=== PATIENT | male | born 1950 ===

== ENCOUNTER → 2018-01-21 11:27 | Outpatient (CLI) | payer OTHER, SELFPAY | PROVIDERS: PCP Physician Assistant; Visit Provider Physician Assistant | DX: Z12.5 Encounter for screening for malignant neoplasm of prostate (principal) | CPT/HCPCS: 36415; 84153 ==

== ENCOUNTER → 2018-07-17 09:25 | Outpatient (CLI) | payer OTHER, SELFPAY ==
[2018-07-17 10:13] LABS: Add Manual Diff / Slide Review NO; Basophils Percent Auto 0.2 % (0-2); Eosinophils Percent Auto 1.2 % (2-4); Hematocrit 45.9 % (41-53); Hemoglobin 15.4 g/dL (13.5-17.5); Lymphocytes Percent Auto 28.7 % (25-40); Mean Corpuscular HGB Conc 33.5 % (30-36); Mean Corpuscular Hemoglobin 30.2 PG (26-34); Mean Corpuscular Volume 90.3 fL (80-100); Monocytes Percent Auto 8.6 % (3-14); Neutrophils Absolute Auto 3600 /uL (3000-5900); Neutrophils Percent Auto 61.3 % (50-75); Platelet Count 182 X10^3/uL (150-400); Red Blood Cell Count 5.08 X10^6/uL (4.5-5.9); Red Cell Distribution Width 13.6 % (11.6-14.8); White Blood Cell Count 5.8 X10^3/uL (4.5-11.0)
[2018-07-17 11:07] LABS: HEMOLYSIS < 15 (0-50); Iron 110 ug/dL (49-181)
[2018-07-17 11:08] LABS: Alanine Aminotransferase 33 IU/L (21-72); Albumin 4.4 g/dL (3.5-5.0); Albumin Globulin Ratio 1.6 (1.0-2.8); Alkaline Phosphatase 82 U/L (38-126); Aspartate Aminotransferase 28 IU/L (17-59); BUN Creatinine Ratio 18.3 (6-22); Bilirubin Total 0.7 mg/dL (0.2-1.3); Blood Urea Nitrogen 22 mg/dL (9-20); Calcium 9.4 mg/dL (8.4-10.2); Carbon Dioxide 31 mmol/L (22-32); Chloride 103 mmol/L (98-107); Estimated Glomerular Filt Rate > 60.0 mL/min (>60); Globulin 2.8 g/dL (1.7-4.1); Glucose 90 mg/dL (80-110); HEMOLYSIS < 15 (0-50); Potassium 4.7 mmol/L (3.4-5.1); Sodium 144 mmol/L (137-145); Total Protein 7.2 g/dL (6.3-8.2)
[2018-07-17 11:32] LABS: Percent Iron Saturation 37 % (20-50); Total Iron Binding Capacity 297 ug/dL (261-462)
[2018-07-17 11:42] LABS: Thyroid Stimulating Hormone 2.29 uIU/mL (0.47-4.68)
[2018-07-17 11:46] LABS: Ferritin 37.1 ng/mL (17.9-464)
[2018-07-17 13:35] LABS: Transferrin 239 mg/dL (206-381)
== END ==
PROVIDERS: PCP Physician Assistant; Visit Provider Physician Assistant
DX: K21.9 Gastro-esophageal reflux disease without esophagitis (principal); R10.11 Right upper quadrant pain; R10.12 Left upper quadrant pain; R11.0 Nausea; R42 Dizziness and giddiness; R53.83 Other fatigue
CPT/HCPCS: 36415; 80053; 82728; 83540; 83550; 84443; 85025

== ENCOUNTER → 2018-07-24 14:08 | Outpatient (CLI) | payer OTHER, SELFPAY ==
--- NOTE | 2018-07-24 14:09 | DI.RAD.S_ITS ---
PROCEDURE: FL BARIUM SWALLOW INDICATIONS: Upper abdominal discomfort; nausea; heartburn COMPARISON: None. FINDINGS: Function: There is normal esophageal peristalsis. There is mild gastroesophageal reflux with contrast reflux to inferior one third of the esophageal lumen. A small sliding hiatal hernia is also seen There is normal transit of a calibrated barium tablet through the esophagus into the stomach. Morphology: Air-contrast images demonstrate normal mucosal morphology. Single contrast views show no esophageal strictures, extrinsic mass effects, or diverticula. Limited images of the stomach demonstrate normal appearance. IMPRESSION: Small sliding hiatal hernia and mild gastroesophageal reflux. Dictated by: Harvey Rodriguez M.D. on 07/24/2018 at 15:35 Approved by: Harvey Rodriguez M.D. on 07/24/2018 at 15:39
== END ==
PROVIDERS: PCP Physician Assistant; Visit Provider Physician Assistant
DX: K21.9 Gastro-esophageal reflux disease without esophagitis (principal); K44.9 Diaphragmatic hernia without obstruction or gangrene; R10.11 Right upper quadrant pain; R10.12 Left upper quadrant pain; R11.0 Nausea; R42 Dizziness and giddiness; R53.83 Other fatigue
CPT/HCPCS: 74220

== ENCOUNTER → 2018-08-04 13:36 | Outpatient (CLI) | payer OTHER, SELFPAY ==
--- NOTE | 2018-08-04 13:37 | DI.US.S_ITS ---
PROCEDURE: US ABDOMEN COMPLETE INDICATIONS: PAIN TECHNIQUE: Real-time scanning was performed of the abdominal and retroperitoneal organs, with image documentation. COMPARISON: None. FINDINGS: Liver: The liver demonstrates normal size. The liver demonstrates generalized increased echogenicity. This decreases ultrasound sensitivity for detection of hepatic masses. Gallbladder: No findings of gallstones or sludge are seen. The gallbladder wall is not thickened, measuring 3 mm or less. No specific pericholecystic fluid is seen. The sonographic Garsia sign is negative. Biliary ducts: Intrahepatic bile ducts are non-dilated. Extrahepatic bile duct caliber measures 3 mm. Normal is 6-7 mm or less in diameter, or 10 mm or less post-cholecystectomy. Pancreas: Visualized portions of the pancreas are sonographically normal. Spleen: Spleen is normal in size and homogeneous in echotexture. Kidneys: Kidneys are normal in size and echotexture. Right kidney measures 10.5 cm long; left kidney measures 9.1 cm long. No hydronephrosis or nephrolithiasis. No solid masses. Simple appearing bilateral renal cysts can be seen. The renal cortex measures within normal limits for thickness. Aorta: Visualized aorta is normal in caliber at less than 3 cm. Iliacs: Proximal common iliac arteries are normal in caliber at less than 2.5 cm. IVC: Intrahepatic inferior vena cava is patent. Miscellaneous: No free abdominal fluid. IMPRESSION: No imaging explanation is found for this patient's presenting history of upper abdominal pain. The gallbladder demonstrates a normal sonographic appearance. No biliary dilatation is seen. Bilateral simple appearing renal cysts are incidentally noted. The liver demonstrates increased echogenicity. This finding is nonspecific, yet it is most commonly attributed to fatty infiltration. Dictated by: Serg Rendon M.D. on 08/04/2018 at 13:48 Approved by: Serg Rendon M.D. on 08/04/2018 at 13:50
== END ==
PROVIDERS: PCP Physician Assistant; Visit Provider Physician Assistant
DX: R10.11 Right upper quadrant pain (principal); R10.12 Left upper quadrant pain; K21.9 Gastro-esophageal reflux disease without esophagitis; R11.0 Nausea; R42 Dizziness and giddiness; R53.83 Other fatigue
CPT/HCPCS: 76700

== ENCOUNTER → 2021-11-20 14:47 | Outpatient (CLI) | payer OTHER, SELFPAY ==
[2021-11-20 15:14] LABS: Add Manual Diff / Slide Review NO; Basophils Absolute Auto 0 /uL (0-100); Basophils Percent Auto 0.6 % (0-2); Eosinophils Absolute Auto 100 /uL (0-450); Eosinophils Percent Auto 2.3 % (2-4); Hematocrit 44.5 % (41-53); Hemoglobin 14.8 g/dL (13.5-17.5); Lymphocytes Absolute Auto 1600 /uL (1100-4500); Lymphocytes Percent Auto 25.8 % (25-40); Mean Corpuscular HGB Conc 33.2 % (30-36); Mean Corpuscular Hemoglobin 30.6 PG (26-34); Mean Corpuscular Volume 92.2 fL (80-100); Monocytes Absolute Auto 600 /uL (0-900); Monocytes Percent Auto 10.2 % (3-14); Neutrophils Absolute Auto 3800 /uL (1500-7000); Neutrophils Percent Auto 61.1 % (50-75); Platelet Count 247 X10^3/uL (150-400); Red Blood Cell Count 4.83 X10^6/uL (4.5-5.9); Red Cell Distribution Width 14.1 % (11.6-14.8); White Blood Cell Count 6.2 X10^3/uL (4.5-11.0)
[2021-11-20 15:39] LABS: Alanine Aminotransferase 71 IU/L (<50); Albumin 4.3 g/dL (3.5-5.0); Albumin Globulin Ratio 1.4 (1.0-2.8); Alkaline Phosphatase 150 U/L (38-126); Aspartate Aminotransferase 49 IU/L (17-59); BUN Creatinine Ratio 15.6 (6-22); Bilirubin Total 0.6 mg/dL (0.2-1.3); Blood Urea Nitrogen 25 mg/dL (9-20); Carbon Dioxide 28 mmol/L (22-32); Chloride 101 mmol/L (98-107); Cholesterol 119 mg/dL (140-199); Estimated Glomerular Filt Rate 42.9 mL/min (>60); Glucose 119 mg/dL (80-110); HDL Cholesterol 40 mg/dL (40-60); HEMOLYSIS < 15 (0-50); LDL Cholesterol Calculated 62 mg/dL (<100); Potassium 4.6 mmol/L (3.4-5.1); Sodium 138 mmol/L (137-145); Total Protein 7.3 g/dL (6.3-8.2); Triglycerides 86 mg/dL (35-150)
[2021-11-20 16:08] LABS: Prostate Specific Antigen Scrn 2.22 ng/mL (0.1-4.0)
[2021-11-20 16:44] LABS: TSH w/ Reflex to FT4 4.81 uIU/mL (0.47-4.68)
== END ==
PROVIDERS: PCP Internal Medicine; Referring Provider Internal Medicine; Visit Provider Internal Medicine
DX: E78.2 Mixed hyperlipidemia (principal); I50.22 Chronic systolic (congestive) heart failure; Z12.5 Encounter for screening for malignant neoplasm of prostate; Z80.42 Family history of malignant neoplasm of prostate
CPT/HCPCS: 36415; 80053; 80061; 84439; 84443; 85025; G0103

== ENCOUNTER → 2021-11-30 08:01 | Outpatient (CLI) | payer OTHER, SELFPAY ==
[2021-11-30 10:34] LABS: Blood Urea Nitrogen 25 mg/dL (9-20); Calcium 8.9 mg/dL (8.4-10.2); Carbon Dioxide 27 mmol/L (22-32); Chloride 102 mmol/L (98-107); Estimated Glomerular Filt Rate 51 mL/min (>60); Glucose 99 mg/dL (80-110); HEMOLYSIS < 15 (0-50); Potassium 4.7 mmol/L (3.4-5.1); Sodium 139 mmol/L (137-145)
== END ==
PROVIDERS: PCP Internal Medicine; Referring Provider Internal Medicine; Visit Provider Internal Medicine
DX: I10 Essential (primary) hypertension (principal)
CPT/HCPCS: 36415; 80048

== ENCOUNTER → 2022-02-01 08:03 | Outpatient (CLI) | payer OTHER, SELFPAY ==
--- NOTE | 2022-02-01 08:19 | DI.ECHO.S_ITS ---
+ + Interpretation Summary The patient was in Paced rhythm during the exam. Left ventricular systolic function is moderate to severely reduced. There is basal inferior wall akinesis. There is mid inferior wall akinesis. There is basal posterolateral wall akinesis. There is proximal mid posteriolateral wall akinesis. 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 Diastolic function could not be accurately assessed due to confounding valvular disease. Right ventricular systolic function is mildly reduced. The left atrium is severely dilated. An annuloplasty ring is noted in the mitral position. There is mild mitral regurgitation. There is mild aortic valve sclerosis. There is mild tricuspid regurgitation. The right ventricular systolic pressure is estimated to be at least 34 mmHg based on an estimated right atrial pressure of 8 mm Hg. The IVC is dilated (diameter is greater than 2.1 cm) yet it collapses greater than 50% with a sniff. This suggests a right atrial pressure of 8 mm Hg. The ejection fraction is estimated to be 35-40%. Echodensity in the RV cavity suggestive of pacemaker wire vs temporary pacemaker wire vs AICD lead. Similar to 11/02/2021 Procedure: A two-dimensional transthoracic echocardiogram with color flow and Doppler was performed. The study quality was technically adequate. Comparison is made with the echocardiogram of 11/02/2021. The patient was in Paced rhythm during the exam. Left Ventricle: The left ventricle is severely dilated. The estimated left ventricular end diastolic volume (BP) is 158 ml. Left ventricular systolic function is moderate to severely reduced. The ejection fraction is estimated to be 35-40%. There is basal inferior wall akinesis. There is mid inferior wall akinesis. There is basal posterolateral wall akinesis. There is proximal mid posteriolateral wall akinesis. 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 Diastolic function could not be accurately assessed due to confounding valvular disease. Right Ventricle: The right ventricle is normal size. Echodensity in the RV cavity suggestive of pacemaker wire vs temporary pacemaker wire vs AICD lead. Right ventricular systolic function is mildly reduced. Atria: The left atrium is severely dilated. Right atrial size is normal. The interatrial septum grossly appears intact with no obvious evidence for an atrial septal defect. Mitral Valve: An annuloplasty ring is noted in the mitral position. The mitral valve mean gradient is 3 mmHg. There is mild mitral regurgitation. Aortic Valve: There is mild aortic valve sclerosis. No aortic regurgitation is present. Tricuspid Valve: The tricuspid valve is normal in structure and function. There is mild tricuspid regurgitation. The right ventricular systolic pressure is estimated to be at least 34 mmHg based on an estimated right atrial pressure of 8 mm Hg. Pulmonic Valve: The pulmonic valve is normal in structure and function. There is mild pulmonic regurgitation. Great Vessels: The aortic root is normal size. The dimensions of the ascending aorta are normal. The IVC is dilated (diameter is greater than 2.1 cm) yet it collapses greater than 50% with a sniff. This suggests a right atrial pressure of 8 mm Hg. Pericardium/ Pleura There is no pericardial effusion. There is no pleural effusion. MMode/2D Measurements & Calculations LVIDd: 7.4 cm LVOT diam: 2.4 cm LVIDs: 6.8 cm Ao root diam: 3.7 cm FS: 8.1 % asc Aorta Diam: 3.4 cm IVSd: 1.2 cm LVPWd: 0.70 cm LV brooke. diameter/BSA (cm/m^2): 3.6 LV sys. diameter/BSA (cm/m^2): 3.3 LA dimension: 5.2 cm RA long axis: 5.3 cm LA A2 area: 40.7 cm2 IVC diam: 2.3 cm LA A4 area: 42.8 cm2 LA length (vol): 7.1 cm LA vol: 208.0 ml LA vol index: 102.3 ml/m2 LVLs ap4: 7.5 cm LVLd ap2: 8.6 cm LVLs ap2: 8.2 cm TAPSE_phl: 1.3 cm Doppler Measurements & Calculations Ao V2 max: 105.0 cm/sec LVOT Max Landen: 74.4 cm/sec Ao V2 mean: 82.8 cm/sec LV V1 max P.2 mmHg Ao max P.0 mmHg LV V1 VTI: 16.4 cm Ao mean P.0 mmHg THEO(I,D): 3.0 cm2 Ao V2 VTI: 24.6 cm THEO(V,D): 3.2 cm2 sev ratio: 0.67 THEO indexed to BSA (cm^2/m^2): 1.5 MV E max landen: 113.0 cm/sec TR max landen: 257.0 cm/sec MV A max landen: 62.6 cm/sec TR max P.4 mmHg MV E/A: 1.8 Med Peak E' Landen: 3.6 cm/sec E/E' med: 31.6 Lat Peak E' Landen: 6.4 cm/sec E/E' lat: 17.7 E/e' average: 24.6 MV dec time: 0.18 sec MVA(VTI): 2.0 cm2 MV V2 mean: 74.5 cm/sec MR VTI: 184.0 cm MV mean P.0 mmHg MV V2 VTI: 37.5 cm SV(LVOT): 74.2 ml AV VR_phl: 0.71 THEO(VTI)/BSA_phl: 1.5 MV P1/2t-pr_phl: 52.0 msec Reading Physician:PM
== END ==
PROVIDERS: PCP Internal Medicine
DX: I25.10 Atherosclerotic heart disease of native coronary artery without angina pectoris (principal); Z95.0 Presence of cardiac pacemaker; I08.3 Combined rheumatic disorders of mitral, aortic and tricuspid valves
CPT/HCPCS: 93306

== ENCOUNTER → 2022-02-15 11:17 | Outpatient (CLI) | payer OTHER, SELFPAY ==
[2022-02-15 12:28] LABS: Alanine Aminotransferase 37 IU/L (<50); Albumin 4.2 g/dL (3.5-5.0); Albumin Globulin Ratio 1.7 (1.0-2.8); Alkaline Phosphatase 100 U/L (38-126); Aspartate Aminotransferase 32 IU/L (17-59); BUN Creatinine Ratio 16.7 (6-22); Bilirubin Total 0.9 mg/dL (0.2-1.3); Blood Urea Nitrogen 18 mg/dL (9-20); Calcium 8.8 mg/dL (8.4-10.2); Carbon Dioxide 29 mmol/L (22-32); Chloride 104 mmol/L (98-107); Estimated Glomerular Filt Rate > 60 mL/min (>60); Globulin 2.5 g/dL (1.7-4.1); Glucose 100 mg/dL (80-110); HEMOLYSIS < 15 (0-50); Sodium 142 mmol/L (137-145); Total Protein 6.7 g/dL (6.3-8.2)
== END ==
PROVIDERS: PCP Internal Medicine; Referring Provider Internal Medicine; Visit Provider Internal Medicine
DX: I48.0 Paroxysmal atrial fibrillation (principal); N17.9 Acute kidney failure, unspecified
CPT/HCPCS: 36415; 80053

== ENCOUNTER → 2022-02-26 08:04 | Outpatient (CLI) | payer OTHER, SELFPAY ==
[2022-02-26 09:08] LABS: Add Manual Diff / Slide Review NO; Basophils Absolute Auto 0 /uL (0-100); Basophils Percent Auto 0.4 % (0-2); Eosinophils Absolute Auto 100 /uL (0-450); Eosinophils Percent Auto 1.3 % (2-4); Hematocrit 39.9 % (41-53); Hemoglobin 13.4 g/dL (13.5-17.5); Lymphocytes Absolute Auto 1500 /uL (1100-4500); Lymphocytes Percent Auto 25.1 % (25-40); Mean Corpuscular HGB Conc 33.6 % (30-36); Mean Corpuscular Hemoglobin 31.6 PG (26-34); Mean Corpuscular Volume 94.1 fL (80-100); Monocytes Absolute Auto 400 /uL (0-900); Monocytes Percent Auto 6.7 % (3-14); Neutrophils Absolute Auto 3900 /uL (1500-7000); Neutrophils Percent Auto 66.5 % (50-75); Platelet Count 176 X10^3/uL (150-400); Red Blood Cell Count 4.23 X10^6/uL (4.5-5.9); Red Cell Distribution Width 15.3 % (11.6-14.8); White Blood Cell Count 5.9 X10^3/uL (4.5-11.0)
[2022-02-26 09:40] LABS: BUN Creatinine Ratio 20.6 (6-22); Blood Urea Nitrogen 27 mg/dL (9-20); Calcium 8.6 mg/dL (8.4-10.2); Carbon Dioxide 27 mmol/L (22-32); Chloride 107 mmol/L (98-107); Cholesterol 105 mg/dL (140-199); Estimated Glomerular Filt Rate 59 mL/min (>60); Glucose 126 mg/dL (80-110); HDL Cholesterol 45 mg/dL (40-60); HEMOLYSIS < 15 (0-50); LDL Cholesterol Calculated 44 mg/dL (<100); Potassium 4.2 mmol/L (3.4-5.1); Sodium 139 mmol/L (137-145); Triglycerides 78 mg/dL (35-150)
== END ==
PROVIDERS: PCP Internal Medicine; Referring Provider Internal Medicine Cardiovascular Disease; Visit Provider Internal Medicine Cardiovascular Disease
DX: I10 Essential (primary) hypertension (principal); I25.10 Atherosclerotic heart disease of native coronary artery without angina pectoris
CPT/HCPCS: 36415; 80048; 80061; 85025

== ENCOUNTER → 2022-03-07 12:14 | Outpatient (CLI) | payer OTHER, SELFPAY ==
[2022-03-07 13:00] LABS: Appearance Urine UA CLOUDY; Bilirubin Urine UA NEGATIVE (NEGATIVE); Color Urine UA YELLOW; Glucose Urine UA NEGATIVE (Negative); Ketones Urine UA TRACE (NEGATIVE); Leukocyte Esterase Urine UA 2+ (NEGATIVE); Nitrite Urine UA POSITIVE (Negative); Occult Blood Urine UA 3+ (Negative); Protein Urine UA 2+ (Negative); Urobilinogen Urine UA 0.2 E.U./dL (0.2)
[2022-03-07 13:21] LABS: RBC Urine 30-100/HPF (0-5/HPF); WBC Urine 5-10/HPF (0-5/HPF)
[2022-03-07 13:22] LABS: Amorphous Sediment Urine 1+; Bacteria Urine Moderate (10-30); Culture Indicated Urine Specimen Cultured; Squamous Epithelial Cell Urine 1-5 /HPF (0-5/HPF)
== END ==
PROVIDERS: PCP Internal Medicine; Referring Provider Internal Medicine; Visit Provider Internal Medicine
DX: R30.0 Dysuria (principal); R39.15 Urgency of urination
CPT/HCPCS: 81001; 87077; 87086; 87186

== ENCOUNTER → 2022-04-18 10:10 | Outpatient (CLI) | payer OTHER, SELFPAY ==
[2022-04-18 11:38] LABS: BUN Creatinine Ratio 16.2 (6-22); Blood Urea Nitrogen 16 mg/dL (9-20); Calcium 8.6 mg/dL (8.4-10.2); Carbon Dioxide 27 mmol/L (22-32); Chloride 108 mmol/L (98-107); Estimated Glomerular Filt Rate > 60 mL/min (>60); Glucose 108 mg/dL (80-110); HEMOLYSIS < 15 (0-50); Sodium 139 mmol/L (137-145)
== END ==
PROVIDERS: PCP Internal Medicine; Referring Provider Internal Medicine; Visit Provider Internal Medicine
DX: N17.9 Acute kidney failure, unspecified (principal)
CPT/HCPCS: 36415; 80048

== ENCOUNTER → 2022-05-18 07:55 | Outpatient (CLI) | payer OTHER, SELFPAY ==
[2022-05-18 10:26] LABS: Add Manual Diff / Slide Review NO; Basophils Absolute Auto 0 /uL (0-100); Basophils Percent Auto 0.3 % (0-2); Eosinophils Absolute Auto 100 /uL (0-450); Eosinophils Percent Auto 1.3 % (2-4); Hematocrit 38.9 % (41-53); Hemoglobin 12.8 g/dL (13.5-17.5); Lymphocytes Absolute Auto 1400 /uL (1100-4500); Lymphocytes Percent Auto 29.8 % (25-40); Mean Corpuscular Hemoglobin 31.8 PG (26-34); Mean Corpuscular Volume 96.3 fL (80-100); Monocytes Absolute Auto 400 /uL (0-900); Neutrophils Absolute Auto 2900 /uL (1500-7000); Neutrophils Percent Auto 60.6 % (50-75); Platelet Count 155 X10^3/uL (150-400); Red Blood Cell Count 4.04 X10^6/uL (4.5-5.9); Red Cell Distribution Width 14.9 % (11.6-14.8); White Blood Cell Count 4.7 X10^3/uL (4.5-11.0)
[2022-05-18 15:35] LABS: HEMOLYSIS < 15 (0-50)
[2022-05-18 15:46] LABS: BUN Creatinine Ratio 19.8 (6-22); Blood Urea Nitrogen 24 mg/dL (9-20); Calcium 8.8 mg/dL (8.4-10.2); Carbon Dioxide 28 mmol/L (22-32); Chloride 103 mmol/L (98-107); Cholesterol 115 mg/dL (140-199); Estimated Glomerular Filt Rate > 60 mL/min (>60); Glucose 85 mg/dL (80-110); HDL Cholesterol 48 mg/dL (40-60); LDL Cholesterol Calculated 53 mg/dL (<100); Potassium 4.3 mmol/L (3.4-5.1); Sodium 140 mmol/L (137-145); Triglycerides 68 mg/dL (35-150)
== END ==
PROVIDERS: PCP Internal Medicine; Referring Provider Internal Medicine Cardiovascular Disease; Visit Provider Internal Medicine Cardiovascular Disease
DX: I25.10 Atherosclerotic heart disease of native coronary artery without angina pectoris (principal)
CPT/HCPCS: 36415; 80048; 80061; 85025

== ENCOUNTER 2022-07-05 17:29 | Emergency (ER) | payer OTHER, SELFPAY ==
[2022-07-05] VITALS (30 sets, daily range): BP systolic 87–122; BP diastolic 52–75; PULSE 59–144; RESP 15–27; TEMP 36.9; O2SAT 96–99; BMI 22.4
[2022-07-05] MEDS: AMIODARONE 150 MG/100 ML PIGGYBACK 600 MG IV (18:01)
--- NOTE | 2022-07-05 18:05 | ED.ARRPALP ---
HPI - Arrhythmia/Palpitations General Chief Complaint: Arrhythmia/Palpitations Stated Complaint: Fainting, Blood pressure issues Time Seen by Provider: 07/05/22 17:42 History of Present Illness HPI narrative: 71M nonsmoker with history of coronary artery disease with RCA stent and prior VF arrest, mitral valve repair, AFib status post DCCV, presents to the emergency department at the request of his data communications software consultant for evaluation of paroxysmal dizziness. The ascending data communications software consultant is suspicious of possible SVT versus atrial tachycardia and request patient be administered amiodarone 150 today, workup including interrogation of pacemaker and labs. Patient and report multiple episodes of dizziness and lightheadedness some provoked and others without reason since Saturday. Prior to today he would had multiple brief episodes which he thinks he may have lost consciousness for a few seconds but today was more impressive. He felt little or no prodromal symptoms, thankfully his is at his side and eased him to the ground, he suffered no injury as a consequence of this episode. He became completely unresponsive briefly and then woke up, slightly confused initially but rapidly returned to his baseline. He has been taking medications as directed and denies any dietary change. Related Data Home Medications Medication Instructions Recorded Confirmed apixaban 5 mg tablet (Eliquis) 5 mg PO BID 11/20/21 04/18/22 atorvastatin 40 mg tablet 40 mg PO DAILY 11/20/21 04/18/22 clopidogrel 75 mg tablet 75 mg PO DAILY 03/07/22 04/18/22 metoprolol succinate 50 mg 50 mg PO DAILY 03/07/22 04/18/22 tablet,extended release 24 hr nitroglycerin 0.4 mg sublingual 0.4 mg sublingual Q5-15M PRN 03/07/22 04/18/22 tablet sacubitril 49 mg-valsartan 51 mg 0.5 tab PO BID 03/07/22 04/18/22 tablet (Entresto) Previous Rx's Medication Instructions Recorded amiodarone 200 mg tablet 200 mg PO DAILY #30 tabs 07/05/22 Allergies Allergy/AdvReac Type Severity Reaction Status Date / Time sulfamethoxazole AdvReac Severe dizziness Verified 04/18/22 09:31 [From Sulfamethoxazole-Trimethoprim] trimethoprim AdvReac Severe dizziness Verified 04/18/22 09:31 [From Sulfamethoxazole-Trimethoprim] Review of Systems Review of Systems Narrative: GENERAL: Denies chills, fatigue, malaise, fever, sweats. HEENT: Denies sinus pain, ear pain, sore throat, difficulty swallowing, dizziness. RESPIRATORY: Denies dyspnea, cough, wheezing, hemoptysis, sputum. CARDIOVASCULAR: See HPI GASTROINTESTINAL: Denies nausea, vomiting, abdominal pain, diarrhea, constipation, melena. : Denies dysuria, frequency, incontinence, hematuria, urinary retention. MUSCULOSKELETAL: denies weakness, joint pain, or bony pain SKIN: Denies rash, skin lesions, or other NEUROLOGIC: Denies weakness, headache, numbness, change in speech, confusion, seizures, incoordination. PSYCHIATRIC: No concerning psychosocial issues. 12 point review of systems is negative except for those stated above Patient History Medical History Actinic keratosis Acute kidney injury Advanced directives, counseling/discussion Allergic rhinitis Chicken pox Coronary artery disease Essential hypertension Family history of prostate cancer Hiatal hernia History of elevated PSA Medicare annual wellness visit, initial Mixed hyperlipidemia Paroxysmal atrial fibrillation Systolic CHF, chronic Wears glasses Surgical History Anesthesia History of knee replacement (~2009) S/P heart valve repair (~2012) S/P placement of cardiac pacemaker (~11/2021) Status post repair of hydrocele Family History Father Prostate cancer Hypertension Stroke Cancer Mother Cancer Stroke Grandfather History of heart disease Grandfather History of heart disease Social History Smoking Status: Never smoker second hand exposure: No alcohol intake: former substance use type: does not use Smoking Status: Never smoker Exam Narrative Exam Narrative: GENERAL: [71] year old patient appears stated age. Well-developed patient, in mild distress. HEAD: Atraumatic. Normocephalic. EYES: Pupils equal round and reactive. Extraocular motions intact. No scleral icterus. No injection or drainage. ENT: Nose without bleeding, purulent drainage. Throat without erythema, tonsillar hypertrophy or exudate. Airway patent. NECK: Trachea midline. Non tender CARDIOVASCULAR: Regular rate and rhythm without murmurs, gallops, or rubs. RESPIRATORY: Clear to auscultation. Breath sounds equal bilaterally. No wheezes, rales, or rhonchi. GASTROINTESTINAL: Abdomen soft, non-tender, nondistended. EXTREMITIES: No edema or joint tenderness. BACK: Nontender without deformity or crepitance. No flank tenderness. NEURO: AOx3. SKIN: No rash or erythema of visible areas Initial Vital Signs Initial Vital Signs: Vital Signs Pulse Rate 60 07/05/22 17:47 Respiratory Rate 17 07/05/22 17:47 Pulse Oximetry 98 07/05/22 17:47 Course Orders Ordered: Discontinued Medications Amiodarone HCl/Dextrose (Nexterone) 150 mg in 100 mls @ 600 mls/hr IV NOW ONE; Protocol Stop: 07/05/22 18:02 Last Infusion: 07/05/22 18:21 Dose: 0 mls/hr Documented By: Admin: 07/05/22 18:01 Dose: 600 mls/hr Documented By: ALIVIA Reevaluation(s) Reevaluation #1: Pacemaker has been interrogated and notes multiple runs of SVT as high as the mid 190s Consultations Consultation #1: Discussed with on-call Cardiology. We have discussed history, physical exam, labs and results of pacemaker interrogation. As noted above patient was well-known to cardiology and recommendations to provide amiodarone in department, patient had no more episodes after amiodarone initiated. Patient appropriate for discharge with amiodarone 200 mg daily and follow-up is planned. Return precautions discussed and questions answered to his apparent satisfaction Vital Signs Vital signs: Vital Signs - 8 hr 07/05/22 17:56 07/05/22 17:47 07/05/22 17:48 Temperature 98.4 F Pulse Rate 60 60 60 Respiratory Rate 18 17 15 Blood Pressure 116/75 Pulse Oximetry 98 98 98 Oxygen Delivery Method Room Air 07/05/22 17:50 07/05/22 17:52 07/05/22 17:52 Temperature Pulse Rate 60 60 Respiratory Rate 15 18 Blood Pressure 102/65 Pulse Oximetry 98 97 Oxygen Delivery Method 07/05/22 17:54 07/05/22 17:56 07/05/22 17:58 Temperature Pulse Rate 101 H 114 H 100 H Respiratory Rate 19 18 18 Blood Pressure Pulse Oximetry 98 97 98 Oxygen Delivery Method 07/05/22 17:59 07/05/22 17:59 07/05/22 18:00 Temperature Pulse Rate 136 H 99 H Respiratory Rate 26 H 21 Blood Pressure 114/62 Pulse Oximetry 96 98 Oxygen Delivery Method 07/05/22 18:01 07/05/22 18:01 07/05/22 18:02 Temperature Pulse Rate 61 144 H Respiratory Rate 25 H 17 Blood Pressure 91/55 L Pulse Oximetry 97 98 Oxygen Delivery Method 07/05/22 18:04 07/05/22 18:06 07/05/22 18:10 Temperature Pulse Rate 71 60 133 H Respiratory Rate 16 18 17 Blood Pressure Pulse Oximetry 97 98 97 Oxygen Delivery Method 07/05/22 18:15 07/05/22 18:17 07/05/22 18:17 Temperature Pulse Rate 128 H 88 Respiratory Rate 16 17 Blood Pressure 88/53 L Pulse Oximetry 97 96 Oxygen Delivery Method Room Air 07/05/22 18:20 07/05/22 18:20 07/05/22 18:25 Temperature Pulse Rate 81 76 Respiratory Rate 16 15 Blood Pressure 100/56 L Pulse Oximetry 98 97 Oxygen Delivery Method 07/05/22 18:25 07/05/22 18:30 07/05/22 18:30 Temperature Pulse Rate 60 Respiratory Rate 21 Blood Pressure 90/52 L 112/72 Pulse Oximetry 99 Oxygen Delivery Method Room Air 07/05/22 18:35 07/05/22 18:35 07/05/22 18:40 Temperature Pulse Rate 60 Respiratory Rate 27 H Blood Pressure 122/71 105/64 Pulse Oximetry 99 Oxygen Delivery Method 07/05/22 18:40 07/05/22 18:46 07/05/22 18:46 Temperature Pulse Rate 60 93 H Respiratory Rate 20 16 Blood Pressure 98/57 L Pulse Oximetry 98 99 Oxygen Delivery Method Room Air 07/05/22 18:50 07/05/22 18:50 Temperature Pulse Rate 60 Respiratory Rate 23 Blood Pressure 87/61 L Pulse Oximetry 98 Oxygen Delivery Method MDM - Arrhythmia/Palpitations Lab Data Result diagrams: 07/05/22 17:45 07/05/22 17:45 Labs: Lab Results 07/05/22 07/05/22 07/05/22 Range/Units 17:45 17:45 17:45 WBC 6.2 (4.5-11.0) X10^3/uL RBC 4.45 L (4.5-5.9) X10^6/uL Hgb 14.4 (13.5-17.5) g/dL Hct 41.7 (41-53) % MCV 93.7 (80-100) fL MCH 32.4 (26-34) PG MCHC 34.5 (30-36) % RDW 13.4 (11.6-14.8) % Plt Count 158 (150-400) X10^3/uL Neut % (Auto) 55.9 (50-75) % Lymph % (Auto) 32.1 (25-40) % [place] % (Auto) 10.8 (3-14) % Eos % (Auto) 0.9 L (2-4) % Baso % (Auto) 0.3 (0-2) % Neut # (Auto) 3400 (3843-4895) /uL Lymph # (Auto) 2000 (3351-3968) /uL [place] # (Auto) 700 (0-900) /uL Eos # (Auto) 100 (0-450) /uL Baso # (Auto) 0 (0-100) /uL Sodium 142 (137-145) mmol/L Potassium 4.4 (3.4-5.1) mmol/L Chloride 110 H (98-107) mmol/L Carbon Dioxide 22 (22-32) mmol/L BUN 34 H (9-20) mg/dL Creatinine 1.13 (0.66-1.25) mg/dL Estimated GFR > 60 (>60) mL/min BUN/Creatinine Ratio 30.1 H (6-22) Glucose 116 H (80-110) mg/dL Calcium 8.6 (8.4-10.2) mg/dL Magnesium 2.3 (1.6-2.3) mg/dL Total Bilirubin 0.7 (0.2-1.3) mg/dL AST 25 (17-59) IU/L ALT 25 (<50) IU/L Alkaline Phosphatase 106 (38-126) U/L Total Protein 6.6 (6.3-8.2) g/dL Albumin 4.1 (3.5-5.0) g/dL Globulin 2.5 (1.7-4.1) g/dL Albumin/Globulin Ratio 1.6 (1.0-2.8) Lipase 63 (23-300) U/L SARS-CoV-2 (PCR) Negative (Negative) MDM Narrative Medical decision making narrative: Patient presents with after unprovoked syncopal episode today, patient had contacted his data communications software consultant prior to his arrival. Patient was initially tachycardic on arrival, per cardiology wishes labs, IV and pacemaker interrogation initiated, started on amiodarone 150. No more tachycardia after amiodarone, patient asymptomatic for duration of visit. Interrogation noted SVT but no ventricular arrhythmias. Cardiology comfortable with patient's discharge, he is given return precautions, questions answered to his apparent satisfaction Discharge Plan Departure Patient Disposition: Home Clinical Impression: Arrhythmia, SVT (supraventricular tachycardia) Activity Restrictions/Additional Instructions: *You have been diagnosed with [syncope due to SVT (supraventricular tachycardia)] *What to do: *Please continue to take your regular medications as directed. [ x] New medication prescriptions sent to your pharmacy: [[facility] ] [ ] New medication written as a paper prescription [ ] No new medications given *Please follow up with your primary care provider in 2-3 days, call for an appointment. Let them know you were seen in the Emergency Department and that we ask that you be seen in follow up. We will electronically transmit a record of today's note if your PCP is in our system * as we discussed, I have spoken with Dr. Hogan who has recommended the addition of a new medication called amiodarone, which we started here in the emergency department and a prescription was sent to your pharmacy. He is in the process of working on getting you in to see the home health attendant in his group *Return to Emergency Department if you should have any new, worsening or concerning symptoms Prescriptions: New amiodarone 200 mg tablet 200 mg PO DAILY Qty: 30 0RF No Action Eliquis 5 mg tablet 5 mg PO BID Label Comments: TAKE 1 TABLET BY MOUTH 2 TIMES DAILY atorvastatin 40 mg tablet 40 mg PO DAILY Entresto 49-51 mg tablet 0.5 tab PO BID Label Comments: TAKE 1 TABLET BY MOUTH 2 TIMES A DAY clopidogrel 75 mg tablet 75 mg PO DAILY nitroglycerin 0.4 mg tablet, sublingual 0.4 mg sublingual Q5-15M PRN metoprolol succinate 50 mg tablet extended release 24 hr 50 mg PO DAILY Referrals: Deyvi Pickett MD [Primary Care Provider] - Haresh Hogan MD [Physician] - Visit Report Forms: Patient Portal/API
[2022-07-05 18:11] LABS: Add Manual Diff / Slide Review NO; Basophils Absolute Auto 0 /uL (0-100); Basophils Percent Auto 0.3 % (0-2); Eosinophils Absolute Auto 100 /uL (0-450); Eosinophils Percent Auto 0.9 % (2-4); Hematocrit 41.7 % (41-53); Hemoglobin 14.4 g/dL (13.5-17.5); Lymphocytes Absolute Auto 2000 /uL (1100-4500); Lymphocytes Percent Auto 32.1 % (25-40); Mean Corpuscular HGB Conc 34.5 % (30-36); Mean Corpuscular Hemoglobin 32.4 PG (26-34); Mean Corpuscular Volume 93.7 fL (80-100); Monocytes Absolute Auto 700 /uL (0-900); Monocytes Percent Auto 10.8 % (3-14); Neutrophils Absolute Auto 3400 /uL (1500-7000); Neutrophils Percent Auto 55.9 % (50-75); Platelet Count 158 X10^3/uL (150-400); Red Blood Cell Count 4.45 X10^6/uL (4.5-5.9); Red Cell Distribution Width 13.4 % (11.6-14.8); White Blood Cell Count 6.2 X10^3/uL (4.5-11.0)
[2022-07-05 18:20] LABS: Alanine Aminotransferase 25 IU/L (<50); Albumin 4.1 g/dL (3.5-5.0); Albumin Globulin Ratio 1.6 (1.0-2.8); Alkaline Phosphatase 106 U/L (38-126); Aspartate Aminotransferase 25 IU/L (17-59); BUN Creatinine Ratio 30.1 (6-22); Bilirubin Total 0.7 mg/dL (0.2-1.3); Blood Urea Nitrogen 34 mg/dL (9-20); COVID19 -Nasal RAPID Negative (Negative); Calcium 8.6 mg/dL (8.4-10.2); Carbon Dioxide 22 mmol/L (22-32); Chloride 110 mmol/L (98-107); Estimated Glomerular Filt Rate > 60 mL/min (>60); Globulin 2.5 g/dL (1.7-4.1); Glucose 116 mg/dL (80-110); HEMOLYSIS < 15 (0-50); Lipase 63 U/L (23-300); Magnesium 2.3 mg/dL (1.6-2.3); Potassium 4.4 mmol/L (3.4-5.1); Sodium 142 mmol/L (137-145); Total Protein 6.6 g/dL (6.3-8.2)
--- NOTE | 2022-07-05 19:11 | PC.NURSE ---
Pacemaker interrogation report sent, rep call back received and spoke to Dr. Barger.
== END 2022-07-05 19:37 | disposition home or self-care (01) ==
PROVIDERS: Emergency Medicine; Emergency Provider Emergency Medicine; PCP Internal Medicine
DX: I49.9 Cardiac arrhythmia, unspecified (principal); I47.1 Supraventricular tachycardia; Z95.0 Presence of cardiac pacemaker; Z79.01 Long term (current) use of anticoagulants; Z79.899 Other long term (current) drug therapy
CPT/HCPCS: 36415; 80053; 83690; 83735; 85025; 87635; 93005; 96365; 99284; C9803; J0282

== ENCOUNTER → 2022-09-25 15:07 | Outpatient (CLI) | payer OTHER, SELFPAY ==
[2022-09-25 15:44] LABS: Add Manual Diff / Slide Review NO; Basophils Absolute Auto 0 /uL (0-100); Basophils Percent Auto 0.2 % (0-2); Eosinophils Absolute Auto 100 /uL (0-450); Eosinophils Percent Auto 0.9 % (2-4); Hematocrit 41.8 % (41-53); Hemoglobin 14.3 g/dL (13.5-17.5); Lymphocytes Absolute Auto 1600 /uL (1100-4500); Lymphocytes Percent Auto 27.8 % (25-40); Mean Corpuscular HGB Conc 34.2 % (30-36); Mean Corpuscular Hemoglobin 32.2 PG (26-34); Mean Corpuscular Volume 94.3 fL (80-100); Monocytes Absolute Auto 500 /uL (0-900); Monocytes Percent Auto 9.2 % (3-14); Neutrophils Absolute Auto 3700 /uL (1500-7000); Neutrophils Percent Auto 61.9 % (50-75); Platelet Count 160 X10^3/uL (150-400); Red Blood Cell Count 4.43 X10^6/uL (4.5-5.9); Red Cell Distribution Width 14.2 % (11.6-14.8); White Blood Cell Count 5.9 X10^3/uL (4.5-11.0)
[2022-09-25 15:59] LABS: BUN Creatinine Ratio 22.1 (6-22); Blood Urea Nitrogen 25 mg/dL (9-20); Calcium 8.7 mg/dL (8.4-10.2); Carbon Dioxide 30 mmol/L (22-32); Chloride 104 mmol/L (98-107); Estimated Glomerular Filt Rate > 60 mL/min (>60); Glucose 90 mg/dL (80-110); HEMOLYSIS < 15 (0-50); Potassium 4.6 mmol/L (3.4-5.1); Sodium 139 mmol/L (137-145)
== END ==
PROVIDERS: PCP Internal Medicine; Referring Provider Physician Assistant Medical; Visit Provider Physician Assistant Medical
DX: I47.1 Supraventricular tachycardia (principal)
CPT/HCPCS: 36415; 80048; 85025

== ENCOUNTER → 2023-04-10 06:57 | Outpatient (CLI) | payer OTHER, SELFPAY ==
--- NOTE | 2023-04-10 | DI.ECHO.S_ITS ---
[facility] [facility]---------+ [facility] +---------+ : : [address] : : : : [id number] : : : : Phone: [phone]+ Echocardiogram Report + + :Name: JOSUE KENT Study Date: 04/10/2023 Height: 71 in : :[facility] ReadingLocation: Weight: 180 lb : : Gender: Male BSA: 2.0 m2 : :: 1950 Age: 72 yrs BP: 100/69 mmHg: :Reason For Study: ATRIAL FIBRILLATION : :Ordering Physician: MARTIN, : :[place] Performed By: Kendy Fernandez : :Referring: BOSTON HOGAN : + + Interpretation Summary 1) Moderately enlarged left ventricle with moderately reduced systolic function (EF 35-40%). 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 Basal to mid anterolateral wall are severely hypokinetic. Rest of the LV is mildly hypokinetic. 3) The right ventricle is normal size. There is a pacemaker lead in the right ventricle. Right ventricular systolic function is mild to moderately reduced. 4) The left atrium is severely dilated. 5) An annuloplasty ring is noted in the mitral position. The mitral valve mean gradient is 2.6 mmHg. 6) Compared to eEo done 02/01/2022, no significant change. Procedure: A two-dimensional transthoracic echocardiogram with color flow and Doppler was performed. The study quality was technically adequate. Comparison is made with the echocardiogram of 02/01/2022. The patient has a paced rhythm. The heart rate ranged between 60 bpm during the study. Left Ventricle: The left ventricle is moderately dilated. The estimated left ventricular end diastolic volume is 145 ml. The ejection fraction is estimated to be 35-40%. 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 Basal to mid anterolateral wall are severely hypokinetic. Rest of the LV is mildly hypokinetic. Right Ventricle: The right ventricle is normal size. There is a pacemaker lead in the right ventricle. Right ventricular systolic function is mild to moderately reduced. Atria: The left atrium is severely dilated. Right atrial size is normal. There is a catheter/pacemaker lead seen in the right atrium. There is no Doppler evidence for an interatrial shunt. Mitral Valve: The mitral valve leaflets appear mildly thickened, but open well. An annuloplasty ring is noted in the mitral position. The mitral valve mean gradient is 2.6 mmHg. There is trace mitral regurgitation. Aortic Valve: The aortic valve is trileaflet. The aortic valve opens well. There is no aortic valve stenosis. No aortic regurgitation is present. Tricuspid Valve: The tricuspid valve leaflets are thin and pliable. There is mild tricuspid regurgitation. The right ventricular systolic pressure is estimated to be at least 17 mmHg based on an estimated right atrial pressure of 3 mm Hg. Pulmonic Valve: The pulmonic valve leaflets are thin and pliable; valve motion is normal. There is mild to moderate pulmonic regurgitation. Great Vessels: The aortic root is normal size. The dimensions of the ascending aorta are normal. The IVC is of normal diameter and collapses greater than 50% with a sniff. This suggests a low right atrial pressure of 3 mm Hg. Pericardium/ Pleura There is no pericardial effusion. There is no pleural effusion. MMode/2D Measurements & Calculations LVIDd: 6.5 cm LVOT diam: 2.4 cm LVIDs: 5.6 cm Ao root diam: 3.7 cm FS: 14.2 % asc Aorta Diam: 3.3 cm EPSS: 0.93 cm Ao Arch Diam (Prox Trans): 3.0 cm IVSd: 1.3 cm LVPWd: 0.88 cm LV brooke. diameter/BSA (cm/m^2): 3.2 LV sys. diameter/BSA (cm/m^2): 2.8 LA A2 area: 31.2 cm2 RA long axis: 4.6 cm LA A4 area: 32.2 cm2 RA area: 15.7 cm2 LA length (vol): 6.6 cm RA vol: 45.5 ml LA vol: 130.1 ml RA : 22.6 ml/m2 LA vol index: 64.5 ml/m2 IVC diam: 1.8 cm RVD1 (basal): 3.5 cm RVD2 (mid): 3.2 cm TAPSE: 1.1 cm Doppler Measurements & Calculations Ao V2 max: 107.3 cm/sec LVOT Max Landen: 61.0 cm/sec Ao V2 mean: 88.1 cm/sec LV V1 max P.5 mmHg Ao max P.6 mmHg LV V1 VTI: 13.8 cm Ao mean P.2 mmHg THEO(I,D): 2.8 cm2 Ao V2 VTI: 22.8 cm THEO(V,D): 2.7 cm2 sev ratio: 0.61 THEO indexed to BSA (cm^2/m^2): 1.4 MV E max landen: 73.1 cm/sec TR max landen: 187.0 cm/sec MV A max landen: 78.0 cm/sec TR max P.0 mmHg MV E/A: 0.94 PA pr(Accel): 39.6 mmHg Med Peak E' Landen: 4.3 cm/sec E/E' med: 16.9 Lat Peak E' Landen: 3.9 cm/sec E/E' lat: 18.6 E/e' average: 17.8 MV dec time: 0.34 sec MVA(VTI): 2.0 cm2 MV V2 mean: 50.7 cm/sec SV(LVOT): 64.5 ml MV mean P.2 mmHg MV V2 VTI: 32.6 cm Reading Physician:12:06 PM
== END ==
PROVIDERS: PCP Internal Medicine; Referring Provider Internal Medicine Cardiovascular Disease; Visit Provider Internal Medicine Cardiovascular Disease
DX: I07.1 Rheumatic tricuspid insufficiency (principal); I37.1 Nonrheumatic pulmonary valve insufficiency; I48.19 Other persistent atrial fibrillation; I25.10 Atherosclerotic heart disease of native coronary artery without angina pectoris
CPT/HCPCS: 93306

== ENCOUNTER → 2023-04-22 08:37 | Outpatient (CLI) | payer OTHER, SELFPAY ==
[2023-04-22 10:42] LABS: Alanine Aminotransferase 22 IU/L (<50); Albumin 3.7 g/dL (3.5-5.0); Albumin Globulin Ratio 1.6 (1.0-2.8); Alkaline Phosphatase 124 U/L (38-126); Aspartate Aminotransferase 26 IU/L (17-59); BUN Creatinine Ratio 20.4 (6-22); Bilirubin Total 0.9 mg/dL (0.2-1.3); Blood Urea Nitrogen 23 mg/dL (9-20); Calcium 8.7 mg/dL (8.4-10.2); Carbon Dioxide 28 mmol/L (22-32); Chloride 104 mmol/L (98-107); Cholesterol 103 mg/dL (140-199); Estimated Glomerular Filt Rate > 60 mL/min (>60); Globulin 2.3 g/dL (1.7-4.1); Glucose 121 mg/dL (80-110); HDL Cholesterol 34 mg/dL (40-60); HEMOLYSIS < 15 (0-50); LDL Cholesterol Calculated 52 mg/dL (<100); Potassium 4.5 mmol/L (3.4-5.1); Sodium 138 mmol/L (137-145); Triglycerides 85 mg/dL (35-150)
[2023-04-22 11:06] LABS: Prostate Specific Antigen 2.41 ng/mL (0.10-4.00); TSH w/ Reflex to FT4 2.42 uIU/mL (0.47-4.68)
== END ==
PROVIDERS: PCP Internal Medicine; Referring Provider Internal Medicine; Visit Provider Internal Medicine
DX: E78.2 Mixed hyperlipidemia (principal); N40.1 Benign prostatic hyperplasia with lower urinary tract symptoms; I48.0 Paroxysmal atrial fibrillation; I50.22 Chronic systolic (congestive) heart failure; N13.8 Other obstructive and reflux uropathy; Z80.42 Family history of malignant neoplasm of prostate
CPT/HCPCS: 36415; 80053; 80061; 84153; 84443

== ENCOUNTER 2023-05-28 20:21 | Emergency (ER) | payer OTHER, SELFPAY ==
[2023-05-28 20:22] VITALS: BP 130/62; PULSE 67; RESP 16; O2SAT 97; BMI 23.7
--- NOTE | 2023-05-28 20:26 | DI.RAD.S_ITS ---
PROCEDURE: XR CHEST 1V INDICATIONS: AICD discharge TECHNIQUE: One view of the chest was acquired. COMPARISON: [facility], CR, XR CHEST 2 VIEWS, 11/07/2021, 7:01. FINDINGS: Surgical changes and devices: Left chest AICD. Median sternotomy wires. Lungs and pleura: Minimal patchy opacity left lung base. No pleural effusion or pneumothorax. Mediastinum: Mediastinal contours appear normal. Heart size is normal. Bones and chest wall: No suspicious bony lesions. Overlying soft tissues appear unremarkable. IMPRESSION: Minimal nonspecific left basilar opacity could represent atelectasis, aspiration, or pneumonia. Dictated by: Jesus Thayer M.D. on 05/28/2023 at 21:23 Approved by: Jesus Thayer M.D. on 05/28/2023 at 21:24
--- NOTE | 2023-05-28 20:33 | ED_ITS ---
HPI - General Adult General Chief complaint: Arrhythmia/Palpitations Stated complaint: pacemaker fired x1 Time Seen by Provider: 05/28/23 20:25 History of Present Illness HPI narrative: 72-year-old male nonsmoker with history of coronary artery disease, CHF, hypertension and hyperlipidemia with prior cardiac arrest and subsequent AICD placement about 18 months ago presents by EMS for evaluation of his AICD firing today 1 time. He states that he has been in his normal state of health and denies chest pain or shortness of breath nor fever or chills. He states he is had no medication changes or alterations in his pacemaker AICD which is managed by [facility]. He states that just prior to the discharge he was standing and felt a bit lightheaded and perhaps short of breath and then it fired 1 time. On arrival EMS found him resting comfortably with no ongoing symptoms. He denies any recent illness with vomiting or diarrhea. Related Data Home Medications Medication Instructions Recorded Confirmed apixaban 5 mg tablet (Eliquis) 5 mg PO BID 11/20/21 04/22/23 atorvastatin 40 mg tablet 40 mg PO DAILY 11/20/21 04/22/23 metoprolol succinate 50 mg 50 mg PO DAILY 03/07/22 04/22/23 tablet,extended release 24 hr nitroglycerin 0.4 mg sublingual 0.4 mg sublingual Q5-15M PRN 03/07/22 04/22/23 tablet sacubitril 49 mg-valsartan 51 mg 0.5 tab PO BID 03/07/22 04/22/23 tablet (Entresto) ascorbic acid (vitamin C) 1 tab PO DAILY 04/22/23 04/22/23 cholecalciferol (vitamin D3) 50 50 mcg PO DAILY 04/22/23 04/22/23 mcg (2,000 unit) capsule Previous Rx's Medication Instructions Recorded sodium,potassium,mag sulfates 17.5 See Rx Instructions PO .COMPLEX 04/24/23 gram-3.13 gram-1.6 gram oral soln #354 mL (Suprep Bowel Prep Kit) Allergies Allergy/AdvReac Type Severity Reaction Status Date / Time sulfamethoxazole AdvReac Severe dizziness Verified 04/22/23 07:49 [From Sulfamethoxazole-Trimethoprim] trimethoprim AdvReac Severe dizziness Verified 04/22/23 07:49 [From Sulfamethoxazole-Trimethoprim] Review of Systems Review of Systems Narrative: GENERAL: See HPI HEENT: Denies sinus pain, ear pain, sore throat, difficulty swallowing, dizziness. RESPIRATORY: Denies dyspnea, cough, wheezing, hemoptysis, sputum. CARDIOVASCULAR: See HPI GASTROINTESTINAL: Denies nausea, vomiting, abdominal pain, diarrhea, constipation, melena. : Denies dysuria, frequency, incontinence, hematuria, urinary retention. MUSCULOSKELETAL: denies weakness, joint pain, or bony pain SKIN: Denies rash, skin lesions, or other NEUROLOGIC: Denies weakness, headache, numbness, change in speech, confusion, seizures, incoordination. PSYCHIATRIC: No concerning psychosocial issues. 12 point review of systems is negative except for those stated above Patient History Medical History (Updated 05/28/23 @ 21:53 by Carlos Manuel Barger DO) BPH w urinary obs/LUTS Opacity of lung on imaging study Actinic keratosis Allergic rhinitis Acute kidney injury Wears glasses Chicken pox History of elevated PSA Hiatal hernia Paroxysmal atrial fibrillation Family history of prostate cancer Mixed hyperlipidemia Essential hypertension Systolic CHF, chronic Coronary artery disease Surgical History Anesthesia S/P heart valve repair (~2012) History of knee replacement (~2009) S/P placement of cardiac pacemaker (~11/2021) Status post repair of hydrocele Family History Father Prostate cancer Hypertension Stroke Cancer Mother Cancer Stroke Grandfather History of heart disease Grandfather History of heart disease Social History Smoking Status: Never smoker second hand exposure: No alcohol intake: former substance use type: does not use Smoking Status: Never smoker Substance Use Type: does not use Exam Narrative Exam Narrative: GENERAL: [72] year old patient appears stated age. Well-developed patient, in mild distress. HEAD: Atraumatic. Normocephalic. EYES: Pupils equal round and reactive. Extraocular motions intact. No scleral icterus. No injection or drainage. ENT: Nose without bleeding, purulent drainage. Throat without erythema, tonsillar hypertrophy or exudate. Airway patent. NECK: Trachea midline. Non tender CARDIOVASCULAR: Regular rate and rhythm without murmurs, gallops, or rubs. RESPIRATORY: Clear to auscultation. Breath sounds equal bilaterally. No wheezes, rales, or rhonchi. GASTROINTESTINAL: Abdomen soft, non-tender, nondistended. EXTREMITIES: No edema or joint tenderness. BACK: Nontender without deformity or crepitance. No flank tenderness. NEURO: AOx3. SKIN: No rash or erythema of visible areas Initial Vital Signs Initial Vital Signs: Vital Signs Pulse Rate 67 05/28/23 20:22 Respiratory Rate 16 05/28/23 20:22 Blood Pressure 130/62 05/28/23 20:22 Pulse Oximetry 97 05/28/23 20:22 Oxygen Delivery Method Room Air 05/28/23 20:22 Course Course Course Narrative: AICD has been interrogated and demonstrates evidence of an episode of VT in the 190s that was appropriately convered with AICD Orders Ordered: ED Orders 05/28/23 20:20 Complete Blood Count AUTO DIFF Stat Comprehensive Metabolic Panel Stat Magnesium Stat Troponin & CK Cardiac Panel Stat 05/28/23 20:26 Chest [XR chest 1V] Stat EKG-12 Lead Stat Consultations Consultation #1: Discussed with on-call lifestyle director Dr. Soriano. We have discussed patient's history and physical exam, AICD interrogation and labs. She recommends no change in medications, most consistent with appropriate discharge, recommends discharge with close follow-up Vital Signs Vital signs: Vital Signs - 8 hr 05/28/23 20:22 05/28/23 20:38 05/28/23 21:00 Pulse Rate 67 69 65 Respiratory Rate 16 15 Blood Pressure 130/62 Pulse Oximetry 97 96 97 Oxygen Delivery Method Room Air 05/28/23 21:01 05/28/23 21:01 05/28/23 21:30 Pulse Rate 63 Respiratory Rate 17 Blood Pressure 117/65 103/60 Pulse Oximetry 97 Oxygen Delivery Method 05/28/23 21:30 Pulse Rate 60 Respiratory Rate 13 Blood Pressure Pulse Oximetry 96 Oxygen Delivery Method Medical Decision Making Lab Data 05/28/23 20:20 05/28/23 20:20 Labs: Lab Results 05/28/23 Range/Units 20:20 WBC 6.4 (4.5-11.0) X10^3/uL RBC 4.43 L (4.5-5.9) X10^6/uL Hgb 14.0 (13.5-17.5) g/dL Hct 41.7 (41-53) % MCV 94.0 (80-100) fL MCH 31.5 (26-34) PG MCHC 33.5 (30-36) % RDW 14.1 (11.6-14.8) % Plt Count 138 L (150-400) X10^3/uL Neut % (Auto) 45.2 L (50-75) % Lymph % (Auto) 42.5 H (25-40) % Sherman % (Auto) 9.9 (3-14) % Eos % (Auto) 2.2 (2-4) % Baso % (Auto) 0.2 (0-2) % Neut # (Auto) 2900 (5983-9396) /uL Lymph # (Auto) 2700 (9283-2951) /uL Sherman # (Auto) 600 (0-900) /uL Eos # (Auto) 100 (0-450) /uL Baso # (Auto) 0 (0-100) /uL Sodium 139 (137-145) mmol/L Potassium 4.3 (3.4-5.1) mmol/L Chloride 102 (98-107) mmol/L Carbon Dioxide 27 (22-32) mmol/L BUN 27 H (9-20) mg/dL Creatinine 1.27 H (0.66-1.25) mg/dL Estimated GFR > 60 (>60) mL/min BUN/Creatinine Ratio 21.3 (6-22) Glucose 118 H (80-110) mg/dL Calcium 9.0 (8.4-10.2) mg/dL Magnesium 2.1 (1.6-2.3) mg/dL Total Bilirubin 0.6 (0.2-1.3) mg/dL AST 26 (17-59) IU/L ALT 20 (<50) IU/L Alkaline Phosphatase 94 (38-126) U/L Total Creatine Kinase 36 L (55-170) U/L Troponin I < 0.012 (0.01-0.034) ng/mL Total Protein 6.4 (6.3-8.2) g/dL Albumin 3.8 (3.5-5.0) g/dL Globulin 2.6 (1.7-4.1) g/dL Albumin/Globulin Ratio 1.5 (1.0-2.8) MDM Narrative Medical decision making narrative: [72] year old patient presents with AICD discharge Multiple etiologies for patient's symptoms considered including, but not limited to: [Appropriate discharge versus inappropriate discharge versus failure versus other] Prior Charts reviewed in our EMR Primary Historian: patient Labs reviewed and interpreted by myself: No significant abnormalities requiring specific or immediate intervention Imaging reviewed: Chest x-ray without acute process Consultations: Discussed with on-call Cardiology, see details above Patient has reassuring history and physical exam. He was briefly symptomatic before in AICD discharge. His device was interrogated and notes a single tachyarrhythmia with single discharge. No ongoing symptoms or subsequent discharge, labs unremarkable. No further workup needed at this time Findings and discharge diagnosis discussed with patient/family followed by verbalization of understanding Return precautions discussed with patient/family whom verbalize understanding of diagnosis and plan Discharge Plan Departure Patient Disposition: Home Clinical Impression: AICD discharge Instructions: DI for Automatic Cardioverter/Defibrillator Implantation Activity Restrictions/Additional Instructions: *You have been diagnosed with [appropriate discharge of your AICD. As we discussed your history and physical exam are reassuring as are labs and the interrogation of your device which suggests it fired properly. As we discussed I contacted the on-call lifestyle director who shares his opinion and recommends he follow closely with Dr. Liang and call the office in the morning.] *What to do: *Please continue to take your regular medications as directed. [ ] New medication prescriptions sent to your pharmacy: [ ] [ ] New medication written as a paper prescription [ ] No new medications given *Please follow up with Dr. Liang's office as soon as possible. Please contact them in the morning, let them know you were seen in the emergency department and we would like you seen in follow-up. I will electronically transmitted a copy of today's note *Return to Emergency Department if you should have any new, worsening or concerning symptoms, such as [fever greater than 101 F, shaking chills, worsening pain, persistent vomiting or other bothersome symptoms] Prescriptions: No Action sodium,potassium,mag sulfates [Suprep Bowel Prep Kit] 17.5-3.13-1.6 gram recon soln See Rx Instructions PO .COMPLEX Qty: 354 0RF Rx Instructions: take as directed by Physician cholecalciferol (vitamin D3) 50 mcg (2,000 unit) capsule 50 mcg PO DAILY ascorbic acid (vitamin C) 1 tab PO DAILY Eliquis 5 mg tablet 5 mg PO BID Patient Comments: TAKE 1 TABLET BY MOUTH 2 TIMES DAILY atorvastatin 40 mg tablet 40 mg PO DAILY Entresto 49-51 mg tablet 0.5 tab PO BID Patient Comments: TAKE 1 TABLET BY MOUTH 2 TIMES A DAY nitroglycerin 0.4 mg tablet, sublingual 0.4 mg sublingual Q5-15M PRN metoprolol succinate 50 mg tablet extended release 24 hr 50 mg PO DAILY Referrals: Jim Liang MD [Physician] - Deyvi Pickett MD [Primary Care Provider] - Stand Alone Forms: Patient Portal/API
[2023-05-28 20:38] VITALS: PULSE 69; O2SAT 96
[2023-05-28 20:46] LABS: Add Manual Diff / Slide Review NO; Basophils Absolute Auto 0 /uL (0-100); Basophils Percent Auto 0.2 % (0-2); Eosinophils Absolute Auto 100 /uL (0-450); Eosinophils Percent Auto 2.2 % (2-4); Hematocrit 41.7 % (41-53); Lymphocytes Absolute Auto 2700 /uL (1100-4500); Lymphocytes Percent Auto 42.5 % (25-40); Mean Corpuscular HGB Conc 33.5 % (30-36); Mean Corpuscular Hemoglobin 31.5 PG (26-34); Monocytes Absolute Auto 600 /uL (0-900); Monocytes Percent Auto 9.9 % (3-14); Neutrophils Absolute Auto 2900 /uL (1500-7000); Neutrophils Percent Auto 45.2 % (50-75); Platelet Count 138 X10^3/uL (150-400); Red Blood Cell Count 4.43 X10^6/uL (4.5-5.9); Red Cell Distribution Width 14.1 % (11.6-14.8); White Blood Cell Count 6.4 X10^3/uL (4.5-11.0)
--- NOTE | 2023-05-28 20:48 | PC.NURSE ---
pt had [address] with pacer spikes noticed, pt states his defibrillator did not fire, pt denies any c/p or sob during episode
[2023-05-28 21:00] VITALS: PULSE 65; RESP 15; O2SAT 97
[2023-05-28 21:01] VITALS: BP 117/65; PULSE 63; RESP 17; O2SAT 97
[2023-05-28 21:02] LABS: Alanine Aminotransferase 20 IU/L (<50); Albumin 3.8 g/dL (3.5-5.0); Albumin Globulin Ratio 1.5 (1.0-2.8); Alkaline Phosphatase 94 U/L (38-126); Aspartate Aminotransferase 26 IU/L (17-59); BUN Creatinine Ratio 21.3 (6-22); Bilirubin Total 0.6 mg/dL (0.2-1.3); Blood Urea Nitrogen 27 mg/dL (9-20); Carbon Dioxide 27 mmol/L (22-32); Chloride 102 mmol/L (98-107); Creatine Kinase 36 U/L (55-170); Estimated Glomerular Filt Rate > 60 mL/min (>60); Globulin 2.6 g/dL (1.7-4.1); Glucose 118 mg/dL (80-110); HEMOLYSIS 23 (0-50); Magnesium 2.1 mg/dL (1.6-2.3); Potassium 4.3 mmol/L (3.4-5.1); Sodium 139 mmol/L (137-145); Total Protein 6.4 g/dL (6.3-8.2)
--- NOTE | 2023-05-28 21:12 | PC.NURSE ---
Tried to interrogate pace maker with [employer] machine, called [employer] and states AICD is a newer model and our machine needs to be upgraded. Pt able to send info over his phone and they would fax the report. during this time, has had multiple runs of a tachy arrhythmia, during each run, pt denied any symptoms
[2023-05-28 21:13] LABS: Troponin I < 0.012 ng/mL (0.01-0.034)
[2023-05-28 21:30] VITALS: BP 103/60; PULSE 60; RESP 13; O2SAT 96
== END 2023-05-28 22:09 | disposition home or self-care (01) ==
PROVIDERS: Emergency Provider Emergency Medicine; PCP Internal Medicine
DX: R00.2 Palpitations (principal); Z45.02 Encounter for adjustment and management of automatic implantable cardiac defibrillator; Z79.01 Long term (current) use of anticoagulants; Z79.899 Other long term (current) drug therapy
CPT/HCPCS: 71045; 80053; 82550; 83735; 84484; 85025; 93005; 93010; 99283; 99284

== ENCOUNTER → 2023-06-04 14:28 | Outpatient (CLI) | payer OTHER, SELFPAY ==
[2023-06-04 17:26] LABS: BUN Creatinine Ratio 19.8 (6-22); Blood Urea Nitrogen 24 mg/dL (9-20); Calcium 9.2 mg/dL (8.4-10.2); Carbon Dioxide 27 mmol/L (22-32); Chloride 102 mmol/L (98-107); Estimated Glomerular Filt Rate > 60 mL/min (>60); Glucose 80 mg/dL (80-110); HEMOLYSIS < 15 (0-50); Potassium 4.8 mmol/L (3.4-5.1); Sodium 138 mmol/L (137-145)
[2023-06-04 17:35] LABS: Add Manual Diff / Slide Review NO; Basophils Absolute Auto 0 /uL (0-100); Basophils Percent Auto 0.2 % (0-2); Eosinophils Absolute Auto 100 /uL (0-450); Hematocrit 41.2 % (41-53); Hemoglobin 14.2 g/dL (13.5-17.5); Lymphocytes Absolute Auto 1700 /uL (1100-4500); Lymphocytes Percent Auto 24.7 % (25-40); Mean Corpuscular HGB Conc 34.4 % (30-36); Mean Corpuscular Hemoglobin 31.8 PG (26-34); Mean Corpuscular Volume 92.6 fL (80-100); Monocytes Absolute Auto 600 /uL (0-900); Monocytes Percent Auto 8.4 % (3-14); Neutrophils Absolute Auto 4500 /uL (1500-7000); Neutrophils Percent Auto 65.7 % (50-75); Platelet Count 152 X10^3/uL (150-400); Red Blood Cell Count 4.45 X10^6/uL (4.5-5.9); Red Cell Distribution Width 13.5 % (11.6-14.8); White Blood Cell Count 6.9 X10^3/uL (4.5-11.0)
[2023-06-04 17:36] LABS: NT-proBNP (BNP-Adult 18+) 2780 pg/mL (<125)
== END ==
PROVIDERS: PCP Internal Medicine; Referring Provider Internal Medicine Cardiovascular Disease; Visit Provider Internal Medicine Cardiovascular Disease
DX: I48.19 Other persistent atrial fibrillation (principal); Z95.810 Presence of automatic (implantable) cardiac defibrillator; I47.10 Supraventricular tachycardia, unspecified
CPT/HCPCS: 36415; 80048; 83880; 85025

== ENCOUNTER → 2023-07-18 11:01 | Outpatient (CLI) | payer OTHER, SELFPAY ==
[2023-07-18 13:02] LABS: Alanine Aminotransferase 24 IU/L (<50); Albumin Globulin Ratio 1.6 (1.0-2.8); Alkaline Phosphatase 91 U/L (38-126); Aspartate Aminotransferase 28 IU/L (17-59); BUN Creatinine Ratio 20.5 (6-22); Bilirubin Total 0.9 mg/dL (0.2-1.3); Blood Urea Nitrogen 25 mg/dL (9-20); Calcium 9.1 mg/dL (8.4-10.2); Carbon Dioxide 27 mmol/L (22-32); Chloride 104 mmol/L (98-107); Estimated Glomerular Filt Rate > 60 mL/min (>60); Globulin 2.5 g/dL (1.7-4.1); Glucose 114 mg/dL (80-110); HEMOLYSIS < 15 (0-50); Potassium 4.4 mmol/L (3.4-5.1); Sodium 137 mmol/L (137-145); Total Protein 6.5 g/dL (6.3-8.2)
[2023-07-18 13:32] LABS: TSH w/ Reflex to FT4 2.83 uIU/mL (0.47-4.68)
== END ==
PROVIDERS: PCP Internal Medicine; Referring Provider Physician Assistant Medical; Visit Provider Physician Assistant Medical
DX: I48.0 Paroxysmal atrial fibrillation (principal)
CPT/HCPCS: 36415; 80053; 84443

== ENCOUNTER → 2023-09-06 09:48 | Outpatient (CLI) | payer OTHER, SELFPAY ==
--- NOTE | 2023-09-06 22:26 | DI.NM.S_ITS ---
DATE OF SERVICE: 09/06/2023 PROCEDURE: Exercise treadmill stress and rest myocardial perfusion imaging with gating to assess ejection fraction and regional wall motion. ORDERING PROVIDER: Haresh Hogan MD INDICATIONS: The patient is a 72-year-old male with a history of infarction and stenting to the RCA, mitral valve repair, ICD implantation, and recent atrial fibrillation and atrial tachycardia. CARDIAC STRESS: The patient was able to exercise for a total of 6 minutes, 53 seconds on a standard Dominic protocol suggesting average exercise capacity with an ISAEL of -2%, achieving 10.1 METS. He had a normal heart rate and blood pressure response to exercise with a resting heart rate of 93 BPM, increasing to a maximum of 151 BPM (101% of his predicted maximum). He had no chest discomfort or other anginal symptoms but significant dyspnea at peak exercise. His resting ECG shows atrial fibrillation at 95 to 100 BPM with some nonspecific ST-segment abnormalities. With stress, there are no other arrhythmias nor any significant ST-segment shifts. At 5 minutes, 40 seconds of exercise, at a heart rate of 133 BPM, 26.5 mCi of technetium-99m Myoview was injected and he was imaged 20 minutes later using a gated SPECT acquisition protocol. Earlier in the day while at rest, he had been injected with 11.4 mCi of technetium-99m Myoview and was imaged 20 minutes later, again using a gated SPECT acquisition protocol. FINDINGS: 1. Raw data. There is fair myocardial tracer uptake. There is likely some mild motion artifact. The lung/heart ratio is normal at 0.37 with a normal TID ratio of 0.93. 2. Quantitated gated SPECT: The post-stress ejection fraction is estimated at 40% but should be viewed with significant caution given the atrial fibrillation which appeared to corrupt the gating, reducing it's accuracy. There appears to be global hypokinesis with more significant hypokinesis in the proximal to mid inferior wall. Quality of the resting ejection fraction estimate is low but is 29%, yet visually appears similar to the post-stress ejection fraction. Left ventricular volumes are moderate-severely increased with a resting end-diastolic volume of 214 mL. 3. Myocardial perfusion imaging: Post-stress supine images show absent perfusion in the proximal to mid inferior wall with a less prominent defect in the distal inferior wall. There is also a mild defect in the anteroseptal apex. The inferior defect remains present on the prone images wall while the apical defect improves on the prone images, suggesting possible attenuation artifact. The resting images show an identical perfusion pattern without any significant improvement in either defect compared to the post-stress images. IMPRESSION: 1. Abnormal myocardial perfusion study. 2. Prominent, severe fixed perfusion defect in the proximal to mid inferior wall, consistent with previous transmural infarction. There is also a mild, fixed, distal, anteroapical defect that improves but does not completely resolve on prone imaging, suggesting a possible previous nontransmural infarction, but there is no evidence for any myocardial ischemia. 3. Probable significantly reduced left ventricular systolic function but gating on this exam was corrupted by the atrial fibrillation reducing the accuracy of estimates but with evidence of inferior wall akinesis, consistent with previous infarction and moderate global hypokinesis with moderately increased left ventricular volumes. 4. Average exercise capacity without angina or ECG evidence of ischemia. Resting ECG shows atrial fibrillation at 95 to 100 BPM, but there are no other arrhythmias with stress. Kendall Finney - RS/mauricio/ec doc#: [id number]/job#: [id number] dd: 09/06/2023 16:36:00 dt: 09/06/2023 21:41:00 DICTATING MD/COPIES TO: Josué Ford MD; Haresh Hogan MD COPIES MNE: ADALID;
== END ==
LOC: NUCM 09:49
PROVIDERS: PCP Internal Medicine; Referring Provider Internal Medicine Cardiovascular Disease; Visit Provider Internal Medicine Cardiovascular Disease
DX: R07.9 Chest pain, unspecified (principal); R94.39 Abnormal result of other cardiovascular function study
CPT/HCPCS: 78452; 93017; A9502

== ENCOUNTER → 2023-10-25 08:27 | Outpatient (CLI) | payer OTHER, SELFPAY ==
[2023-10-25 09:32] LABS: Add Manual Diff / Slide Review NO; Basophils Absolute Auto 0 /uL (0-100); Basophils Percent Auto 0.3 % (0-2); Eosinophils Absolute Auto 0 /uL (0-450); Eosinophils Percent Auto 0.7 % (2-4); Hematocrit 42.4 % (41-53); Hemoglobin 14.2 g/dL (13.5-17.5); Lymphocytes Absolute Auto 1700 /uL (1100-4500); Lymphocytes Percent Auto 24.2 % (25-40); Mean Corpuscular HGB Conc 33.5 % (30-36); Mean Corpuscular Hemoglobin 31.2 PG (26-34); Mean Corpuscular Volume 93.1 fL (80-100); Monocytes Absolute Auto 500 /uL (0-900); Monocytes Percent Auto 6.9 % (3-14); Neutrophils Absolute Auto 4600 /uL (1500-7000); Neutrophils Percent Auto 67.9 % (50-75); Platelet Count 186 X10^3/uL (150-400); Red Blood Cell Count 4.56 X10^6/uL (4.5-5.9); Red Cell Distribution Width 14.6 % (11.6-14.8); White Blood Cell Count 6.8 X10^3/uL (4.5-11.0)
[2023-10-25 09:50] LABS: BUN Creatinine Ratio 15.6 (6-22); Blood Urea Nitrogen 20 mg/dL (9-20); Calcium 8.9 mg/dL (8.4-10.2); Carbon Dioxide 30 mmol/L (22-32); Chloride 107 mmol/L (98-107); Estimated Glomerular Filt Rate 60 mL/min (>60); Glucose 133 mg/dL (80-110); HEMOLYSIS < 15 (0-50); Potassium 4.4 mmol/L (3.4-5.1); Sodium 140 mmol/L (137-145)
== END ==
LOC: LAB 08:28
PROVIDERS: PCP Internal Medicine; Referring Provider Internal Medicine Cardiovascular Disease; Visit Provider Internal Medicine Cardiovascular Disease
DX: I48.0 Paroxysmal atrial fibrillation (principal)
CPT/HCPCS: 36415; 80048; 85025

== ENCOUNTER → 2024-01-24 11:48 | Outpatient (CLI) | payer OTHER, SELFPAY ==
--- NOTE | 2024-01-24 11:49 | DI.RAD.S_ITS ---
PROCEDURE: XR ANKLE LT MIN 3V INDICATIONS: Swelling on lateral aspect of ankle TECHNIQUE: 3 views of the ankle were acquired. COMPARISON: None. FINDINGS: Bones: Oblique fracture through the distal fibula, at the level of the syndesmosis. Ankle mortise is maintained. Soft tissues: Moderate tibiotalar joint effusion. Achilles tendon appears normal. IMPRESSION: Oblique fracture through the distal fibula at the level of the syndesmosis. No unstable fracture features. Dictated by: Vickey Cornejo M.D. on 01/24/2024 at 13:10 Approved by: Vickey Cornejo M.D. on 01/24/2024 at 13:12
== END ==
PROVIDERS: PCP Internal Medicine; Referring Provider Nurse Practitioner Family; Visit Provider Nurse Practitioner Family
DX: S82.432A Displaced oblique fracture of shaft of left fibula, initial encounter for closed fracture (principal); S93.409A Sprain of unspecified ligament of unspecified ankle, initial encounter; X58.XXXA Exposure to other specified factors, initial encounter
CPT/HCPCS: 73610

== ENCOUNTER → 2024-03-30 07:12 | Outpatient (CLI) | payer OTHER, SELFPAY ==
[2024-03-30 08:10] LABS: Hematocrit 40.4 % (41-53); Hemoglobin 13.7 g/dL (13.5-17.5); Mean Corpuscular HGB Conc 33.9 % (30-36); Mean Corpuscular Hemoglobin 32.8 PG (26-34); Mean Corpuscular Volume 96.7 fL (80-100); Platelet Count 139 X10^3/uL (150-400); Red Blood Cell Count 4.18 X10^6/uL (4.5-5.9); Red Cell Distribution Width 14.1 % (11.6-14.8); White Blood Cell Count 6.6 X10^3/uL (4.5-11.0)
[2024-03-30 08:32] LABS: Cholesterol 103 mg/dL (140-199); HDL Cholesterol 46 mg/dL (40-60); LDL Cholesterol Calculated 44 mg/dL (<100); Triglycerides 67 mg/dL (35-150)
== END ==
LOC: LAB 07:13
PROVIDERS: PCP Internal Medicine; Referring Provider Internal Medicine Cardiovascular Disease; Visit Provider Internal Medicine Cardiovascular Disease
DX: I25.10 Atherosclerotic heart disease of native coronary artery without angina pectoris (principal)
CPT/HCPCS: 36415; 80061; 85027

== ENCOUNTER → 2024-04-23 08:35 | Outpatient (CLI) | payer OTHER, SELFPAY ==
[2024-04-23 11:33] LABS: HEMOLYSIS < 15 (0-50)
[2024-04-23 11:38] LABS: Alanine Aminotransferase 71 IU/L (<50); Albumin 3.4 g/dL (3.5-5.0); Albumin Globulin Ratio 1.4 (1.0-2.8); Alkaline Phosphatase 119 U/L (38-126); Aspartate Aminotransferase 52 IU/L (17-59); BUN Creatinine Ratio 17.2 (6-22); Bilirubin Total 0.9 mg/dL (0.2-1.3); Blood Urea Nitrogen 22 mg/dL (9-20); Calcium 9.1 mg/dL (8.4-10.2); Carbon Dioxide 27 mmol/L (22-32); Chloride 103 mmol/L (98-107); Estimated Glomerular Filt Rate 59 mL/min (>60); Globulin 2.4 g/dL (1.7-4.1); Glucose 144 mg/dL (80-110); Potassium 4.2 mmol/L (3.4-5.1); Sodium 135 mmol/L (137-145); Total Protein 5.8 g/dL (6.3-8.2)
[2024-04-23 18:56] LABS: Prostate Specific Antigen 1.92 ng/mL (0.10-4.00)
== END ==
PROVIDERS: PCP Internal Medicine; Referring Provider Internal Medicine; Visit Provider Internal Medicine
DX: N40.1 Benign prostatic hyperplasia with lower urinary tract symptoms (principal); I48.0 Paroxysmal atrial fibrillation; N13.8 Other obstructive and reflux uropathy
CPT/HCPCS: 36415; 80053; 84153

== ENCOUNTER → 2024-07-13 06:43 | Outpatient (CLI) | payer OTHER, SELFPAY ==
--- NOTE | 2024-07-13 06:45 | DI.ECHO.S_ITS ---
[facility] : : [address] : [facility] : : [place], : : [place] [address] : : Phone: [phone] Echocardiogram Report + + :Name: JOSUE KENT Study Date: 07/13/2024 Height: 73 in : :[facility] ReadingLocation: Weight: 180 lb : : Gender: Male BSA: 2.1 m2 : :: 1950 Age: 73 yrs BP: 125/83 mmHg: :Reason For Study: ISCHEMIC CARDIOMYOPATHY : :Ordering Physician: MARTIN, : :[place] Performed By: Darrius Durand : :Referring: BOSTON HOGAN : + + Interpretation Summary 1) Moderately enlarged left ventricle with moderately reduced systolic function (EF about 35%). 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 Basal to mid anterolateral wall are severely hypokinetic. Rest of the LV is mildly hypokinetic. 3) The right ventricle is normal size. There is a pacemaker lead in the right ventricle. Right ventricular systolic function is mild to moderately reduced. 4) The left atrium is severely dilated. 5) An annuloplasty ring is noted in the mitral position. The mitral valve mean gradient is 1.9 mmHg. 6) Compared to the Echo done , no significant change. Procedure: A two-dimensional transthoracic echocardiogram with color flow and Doppler was performed. The study quality was technically good. Comparison is made with the echocardiogram of 04/10/2023. The patient was in normal sinus rhythm during the exam. Left Ventricle: The left ventricle is moderately dilated. There is no ventricular septal defect visualized. Left ventricular ejection fraction is estimated to be 35 +/- 5%. 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 Basal to mid anterolateral wall are severely hypokinetic. Rest of the LV is mildly hypokinetic. Right Ventricle: The right ventricle is normal size. There is a pacemaker lead in the right ventricle. Right ventricular systolic function is mild to moderately reduced. Atria: The left atrium is severely dilated. The right atrium is mildly dilated. There is a catheter/pacemaker lead seen in the right atrium. There is no Doppler evidence for an interatrial shunt. Mitral Valve: The mitral valve leaflets appear mildly thickened, but open well. An annuloplasty ring is noted in the mitral position. The mitral valve mean gradient is 1.9 mmHg. There is mild mitral regurgitation. Aortic Valve: The aortic valve is trileaflet. The aortic valve opens well. There is trace aortic regurgitation. Tricuspid Valve: The tricuspid valve leaflets are thin and pliable. There is mild tricuspid regurgitation. The right ventricular systolic pressure is estimated to be at least 38 mmHg based on an estimated right atrial pressure of 8 mm Hg. Pulmonic Valve: The pulmonic valve leaflets are thin and pliable; valve motion is normal. There is mild to moderate pulmonic regurgitation. Great Vessels: The aortic root is mildly dilated. The dimensions of the ascending aorta are normal. The pulmonary artery is normal size. The IVC is dilated (diameter is greater than 2.1 cm) yet it collapses greater than 50% with a sniff. This suggests a right atrial pressure of 8 mm Hg. Pericardium/ Pleura There is no pericardial effusion. There is no pleural effusion. MMode/2D Measurements & Calculations LVIDd: 7.1 cm AoV Openin.1 cm LVIDs: 6.3 cm LVOT diam: 2.2 cm IVSd: 1.1 cm Ao root diam: 4.0 cm LVPWd: 1.0 cm asc Aorta Diam: 3.5 cm LV brooke. diameter/BSA (cm/m^2): 3.4 Ao Arch Diam (Prox Trans): 2.7 cm LV sys. diameter/BSA (cm/m^2): 3.1 FS: 10.9 % EPSS: 1.2 cm LA A2 area: 40.9 cm2 RA long axis: 4.9 cm LA A4 area: 39.6 cm2 RA area: 17.1 cm2 LA length (vol): 7.6 cm RA vol: 51.0 ml LA vol: 181.9 ml RA : 24.8 ml/m2 LA vol index: 88.4 ml/m2 RVD1 (basal): 3.9 cm IVC diam: 2.1 cm RVD2 (mid): 3.6 cm TAPSE: 1.1 cm Doppler Measurements & Calculations Ao V2 max: 109.6 cm/sec LVOT Max Landen: 64.2 cm/sec Ao V2 mean: 67.9 cm/sec LV V1 max P.6 mmHg Ao V2 VTI: 21.2 cm LV V1 VTI: 15.6 cm Ao max P.8 mmHg Ao mean P.1 mmHg THEO(I,D): 2.8 cm2 MV E max landen: 91.0 cm/sec THEO(V,D): 2.2 cm2 MV A max landen: 73.9 cm/sec THEO indexed to BSA (cm^2/m^2): 1.4 MV E/A: 1.2 sev ratio: 0.74 Med Peak E' Landen: 3.6 cm/sec E/E' med: 25.2 Lat Peak E' Landen: 3.8 cm/sec E/E' lat: 24.1 E/e' average: 24.6 MV dec time: 0.34 sec TR max landen: 273.0 cm/sec MV P1/2t: 89.3 msec TR max P.8 mmHg MVA(P1/2t): 2.5 cm2 MV mean P.9 mmHg MVA(VTI): 1.9 cm2 PA V2 max: 67.2 cm/sec MV V2 mean: 66.0 cm/sec PA V2 mean: 51.5 cm/sec MV V2 VTI: 31.7 cm PA mean P.1 mmHg PA pr(Accel): 51.6 mmHg SV(LVOT): 58.9 ml Reading Physician:11:31 AM
== END ==
PROVIDERS: PCP Internal Medicine; Referring Provider Internal Medicine Cardiovascular Disease; Visit Provider Internal Medicine Cardiovascular Disease
DX: I25.5 Ischemic cardiomyopathy (principal); I08.1 Rheumatic disorders of both mitral and tricuspid valves; I77.810 Thoracic aortic ectasia
CPT/HCPCS: 93306

== ENCOUNTER 2024-07-28 06:39 | Day surgery (SDC) | payer OTHER, SELFPAY ==
[2024-07-28 07:17] VITALS: BP 133/82; PULSE 85; RESP 16; TEMP 36.2; O2SAT 97
--- NOTE | 2024-07-28 07:46 | P.HP_ITS ---
History of Present Illness History of Present Illness Date Patient Seen: 07/28/24 Time Patient Seen: 07:46 Chief complaint: Colonoscopy w/poss bx Narrative: 73-year-old male here for screening colonoscopy. Last colonoscopy 11 years ago. No family history of colon cancer. No abdominal concerns today. [facility] Medical History Closed fracture of left distal fibula BPH w urinary obs/LUTS Opacity of lung on imaging study Actinic keratosis Allergic rhinitis Acute kidney injury Wears glasses Chicken pox History of elevated PSA Hiatal hernia Paroxysmal atrial fibrillation Family history of prostate cancer Mixed hyperlipidemia Essential hypertension Systolic CHF, chronic Coronary artery disease Surgical History Anesthesia S/P heart valve repair (~2012) History of knee replacement (~2009) S/P placement of cardiac pacemaker (~11/2021) Status post repair of hydrocele Family History Father Prostate cancer Hypertension Stroke Cancer Mother Cancer Stroke Grandfather History of heart disease Grandfather History of heart disease Social History Smoking Status: Never smoker second hand exposure: No alcohol intake: former substance use type: does not use Meds Home Medications and Allergies Home Medications Medication Instructions Recorded Confirmed Type apixaban 5 mg tablet (Eliquis) 5 mg PO BID 11/20/21 07/28/24 History atorvastatin 40 mg tablet 40 mg PO DAILY 11/20/21 07/28/24 History metoprolol succinate 50 mg 50 mg PO DAILY 03/07/22 07/28/24 History tablet,extended release 24 hr nitroglycerin 0.4 mg sublingual 0.4 mg sublingual Q5-15M PRN Chest 03/07/22 07/28/24 History tablet Pain sacubitril 49 mg-valsartan 51 mg 0.5 tab PO BID 03/07/22 07/28/24 History tablet (Entresto) ascorbic acid (vitamin C) 1 tab PO DAILY 04/22/23 07/28/24 History cholecalciferol (vitamin D3) 50 50 mcg PO DAILY 04/22/23 07/28/24 History mcg (2,000 unit) capsule amiodarone 200 mg tablet 200 mg PO DAILY 01/10/24 07/28/24 History Allergies Allergy/AdvReac Type Severity Reaction Status Date / Time sulfamethoxazole AdvReac Severe dizziness Verified 07/28/24 07:14 [From Sulfamethoxazole-Trimethoprim] trimethoprim AdvReac Severe dizziness Verified 07/28/24 07:14 [From Sulfamethoxazole-Trimethoprim] Exam Vital Signs (past 8 hours): - 07/28/24 07:17 Temperature 97.2 F L Pulse Rate 85 Respiratory Rate 16 Blood Pressure 133/82 Pulse Oximetry 97 Oxygen Delivery Method Room Air Oxygen Delivery Method Room Air Narrative Exam Narrative: General adult man alert oriented no acute distress Chest nonlabored respiration Extremities warm well perfused Assessment & Plan Assessment & Plan narrative: The patient requires colorectal screening and colonoscopy is recommended. Technical details were discussed. Risks, benefits, alternatives explained. Risks including but not limited to myocardial infarction, aspiration, bleeding, pain, missed lesion, incomplete examination, need for further radiographic studies, intestinal injury, and need for major abdominal surgery were discussed. All questions were answered to their satisfaction, and they are in agreement with this plan. Time-Based Coding :: [TOTAL MINUTES] spent with patient and on the chart (including review of chart, obtaining history, exam, reviewing outside data, placing orders, documenting exam and treatment plan, and counseling patient) on [DATE].
--- NOTE | 2024-07-28 07:48 | P.OP.COLON_ITS ---
Operative Date/Time/Diagnoses Date of procedure: 07/28/24 Time of procedure: 07:48 Pre-op diagnosis: Colorectal screening Procedure & Clinicians Study performed: Screening colonoscopy Same procedure as scheduled: Yes Indications: Screening Surgeon: Mario Hunter Procedure Notes Procedure in detail: The history and physical was performed/updated and the patient is ASA class is 2. The procedure was discussed in detail with the patient. Potential risks complications including infection, bleeding, missed diagnosis, perforation, need for surgery, and were explained. Their questions were answered and informed consent was obtained. Patient was brought to the procedure room and placed standard monitoring equipment. The patient's vital signs were monitored continuously throughout the entire procedure. Prior to starting time-out was performed. The patient was placed in the left lateral recumbent position. Procedural sedation was administered by anesthesia. Examination began with a thorough inspection of the perianal area there was no evidence of fissures, fistulae, external hemorrhoids or cutaneous malignancy. The colonoscopy scope was then placed into the anal canal and was advanced to the cecum, which was identified by the ileocecal valve, the appendiceal orifice and the confluence of the taenia. The scope was then slowly withdrawn examining colon thoroughly in all directions, irrigating it of any residual stool. The scope was retroflexed within the rectum The patient tolerated the procedure well. They will be discharged once criteria are met. The prep was of fair quality. The withdrawl time was 6 minutes. FINDINGS * Internal hemorrhoids * Unremarkable colonoscopy. Normal healthy colonic mucosa without mass or polyps. Findings: internal hemorrhoids Impression: Internal hemorrhoids Post-procedure Recommendations: High fiber diet Plan for aftercare: No need for further colonoscopy unless symptomatic Disposition: same day surgery
[2024-07-28 08:05] VITALS: BP 95/57; PULSE 64; RESP 11; TEMP 36.2; O2SAT 94
[2024-07-28 08:10] VITALS: BP 90/52; PULSE 98; RESP 12; O2SAT 98
[2024-07-28 08:18] VITALS: BP 75/45; PULSE 67; RESP 26; O2SAT 97
[2024-07-28 08:20] VITALS: BP 85/52; PULSE 63; RESP 12; O2SAT 96
[2024-07-28 08:26] VITALS: BP 88/57; PULSE 63; RESP 14; TEMP 36.2; O2SAT 96
== END 2024-07-28 08:35 | disposition home or self-care (01) ==
PROVIDERS: PCP Internal Medicine; Referring Provider Surgery; Visit Provider Surgery
PROC: 0DJD8ZZ Inspection of Lower Intestinal Tract, Via Natural or Artificial Opening Endoscopic (ICD-10-PCS; CPT 45378; principal; 2024-07-28 07:45)
DX: Z12.11 Encounter for screening for malignant neoplasm of colon (principal); K64.8 Other hemorrhoids
CPT/HCPCS: G0121; J2704

== ENCOUNTER → 2024-08-28 15:00 | Outpatient (CLI) | payer OTHER, SELFPAY ==
[2024-08-28 17:20] LABS: Free T4, Direct Thyroxine 1.37 ng/dL (0.78-2.19)
[2024-08-28 17:34] LABS: Thyroid Stimulating Hormone 2.77 uIU/mL (0.47-4.68)
== END ==
PROVIDERS: PCP Internal Medicine; Referring Provider Internal Medicine Cardiovascular Disease; Visit Provider Internal Medicine Cardiovascular Disease
DX: I48.0 Paroxysmal atrial fibrillation (principal)
CPT/HCPCS: 36415; 84439; 84443

== ENCOUNTER 2024-10-23 16:51 | Emergency (ER) | payer OTHER, SELFPAY ==
[2024-10-23] VITALS (16 sets, daily range): BP systolic 98–157; BP diastolic 62–93; PULSE 73–140; RESP 15–24; TEMP 36.3; O2SAT 96–99; BMI 23.7
--- NOTE | 2024-10-23 16:59 | DI.RAD.S_ITS ---
PROCEDURE: XR CHEST 1V INDICATIONS: chest pain TECHNIQUE: One view of the chest was acquired. COMPARISON: [facility], CR, XR CHEST 1V, 05/28/2023, 20:21. FINDINGS: Surgical changes and devices: Left chest wall pacemaker leads are in the region of right atrium and right ventricle. Median sternotomy wires are seen. Lungs and pleura: Lungs are clear. No pleural effusions or pneumothorax. Mediastinum: Mediastinal contours appear normal. Heart size is normal. Bones and chest wall: No suspicious bony lesions. Overlying soft tissues appear unremarkable. IMPRESSION: No acute cardiopulmonary pathology. Dictated by: Harvey Rodriguez M.D. on 10/23/2024 at 17:16 Approved by: Harvey Rodriguez M.D. on 10/23/2024 at 17:16
--- NOTE | 2024-10-23 17:03 | EKG_ITS ---
[address] [address] Test Date: 2024-10-23 Pat Name: Kendall Finney Department: Room: Gender: Male [employer] Mixer: ROSITA : 1950 Requested By: Order Number: [id number] Reading MD: Nikko Melendrez Measurements Intervals [place] Rate: 122 P: [place]: QRS: 8 QRSD: 112 T: -44 QT: 356 QTc: 507 Interpretive Statements Poor data quality, interpretation may be adversely affected Undetermined rhythm Minimal voltage criteria for LVH, may be normal variant ( [place] product ) Possible Inferior infarct , age undetermined Electronically Signed On 10-24-2024 18:29:26 PDT by Nikko Melendrez
[2024-10-23 17:22] LABS: INR 1.3 (0.9-1.3); Prothrombin Time 15.1 SECONDS (9.4-12.5)
[2024-10-23 17:23] LABS: Add Manual Diff / Slide Review NO; Basophils Absolute Auto 0 /uL (0-100); Basophils Percent Auto 0.3 % (0-2); Eosinophils Absolute Auto 100 /uL (0-450); Eosinophils Percent Auto 0.8 % (2-4); Hematocrit 41.8 % (41-53); Hemoglobin 14.3 g/dL (13.5-17.5); Lymphocytes Absolute Auto 1700 /uL (1100-4500); Mean Corpuscular HGB Conc 34.2 % (30-36); Mean Corpuscular Hemoglobin 32.8 PG (26-34); Mean Corpuscular Volume 96.1 fL (80-100); Monocytes Absolute Auto 700 /uL (0-900); Monocytes Percent Auto 9.7 % (3-14); Neutrophils Absolute Auto 4600 /uL (1500-7000); Neutrophils Percent Auto 65.2 % (50-75); Platelet Count 162 X10^3/uL (150-400); Red Blood Cell Count 4.35 X10^6/uL (4.5-5.9); Red Cell Distribution Width 14.1 % (11.6-14.8)
[2024-10-23 17:25] LABS: PTT Partial Thromboplastin Tim 47 SECONDS (25.1-36.5)
[2024-10-23 17:26] LABS: Alanine Aminotransferase 31 IU/L (<50); Albumin 4.1 g/dL (3.5-5.0); Albumin Globulin Ratio 1.8 (1.0-2.8); Alkaline Phosphatase 88 U/L (38-126); Aspartate Aminotransferase 33 IU/L (17-59); BUN Creatinine Ratio 18.9 (6-22); Bilirubin Total 0.9 mg/dL (0.2-1.3); Blood Urea Nitrogen 27 mg/dL (9-20); Carbon Dioxide 26 mmol/L (22-32); Chloride 105 mmol/L (98-107); Creatine Kinase 44 U/L (55-170); Estimated Glomerular Filt Rate 52 mL/min (>60); Globulin 2.3 g/dL (1.7-4.1); Glucose 105 mg/dL (80-110); Lipase 53 U/L (23-300); Potassium 4.4 mmol/L (3.4-5.1); Sodium 138 mmol/L (137-145); Total Protein 6.4 g/dL (6.3-8.2)
[2024-10-23 17:30] LABS: HEMOLYSIS 18 (0-50)
[2024-10-23 17:38] LABS: NT-proBNP (BNP-Adult 18+) 4560 pg/mL (<125); Troponin I < 0.012 ng/mL (0.01-0.034)
--- NOTE | 2024-10-23 19:11 | EKG_ITS ---
[address] [address] Test Date: 2024-10-23 Pat Name: Kendall Finney Department: Room: Gender: Male [employer] Operator: ROSITA : 1950 Requested By: Order Number: [id number] Reading MD: Nikko Melendrez Measurements Intervals [place] Rate: 96 P: [place]: QRS: -9 QRSD: 112 T: -27 QT: 412 QTc: 520 Interpretive Statements atrial fibrillation Minimal voltage criteria for LVH, may be normal variant ( [place] product ) Inferior infarct , age undetermined Prolonged QT please also note previous EKG performed at 5:03 p.m. indicates atrial fibrillation with rapid ventricular response and is not an undetermined rhythm Electronically Signed On 10-24-2024 18:31:38 PDT by Nikko Melendrez
[2024-10-23 19:41] LABS: Troponin I < 0.012 ng/mL (0.01-0.034)
--- NOTE | 2024-10-23 20:24 | ED_ITS ---
HPI - Arrhythmia/Palpitations General Chief Complaint: Arrhythmia/Palpitations Stated Complaint: sent by spinning frame cleaner, sob, fluctuating HR Time Seen by Provider: 10/23/24 20:24 Source: patient Mode of arrival: Ambulatory History of Present Illness HPI narrative: 73-year-old male with a past medical history of hypertension hyperlipidemia CHF CAD paroxysmal AFib on apixaban presents to the emergency department for fluctuating heart rate and shortness of breath ongoing persistent for the past few weeks, he denies any actual chest pain, he states that he has had his medications adjusted by his spinning frame cleaner Dr. Hogan with a past month, he states that he has been feeling fine however pain noticed that his heart rate has been fluctuating low and high therefore he did call the on-call Cardiology and was instructed come into the ED. he denies any actual palpitations chest pain shortness breath fever chills nausea vomiting abdominal pain or any other GI/ symptoms time. He does mention that he has been having intermittent presyncopal symptoms over the past month states it lasts for a few seconds but resolves itself. He does not actually have any chest pain shortness breath during these symptoms. Does not actually syncopized.. Related Data Home Medications Medication Instructions Recorded Confirmed apixaban 5 mg tablet (Eliquis) 5 mg PO BID 11/20/21 07/28/24 atorvastatin 40 mg tablet 40 mg PO DAILY 11/20/21 07/28/24 metoprolol succinate 50 mg 50 mg PO DAILY 03/07/22 07/28/24 tablet,extended release 24 hr nitroglycerin 0.4 mg sublingual 0.4 mg sublingual Q5-15M PRN Chest 03/07/22 07/28/24 tablet Pain sacubitril 49 mg-valsartan 51 mg 0.5 tab PO BID 03/07/22 07/28/24 tablet (Entresto) ascorbic acid (vitamin C) 1 tab PO DAILY 04/22/23 07/28/24 cholecalciferol (vitamin D3) 50 50 mcg PO DAILY 04/22/23 07/28/24 mcg (2,000 unit) capsule amiodarone 200 mg tablet 200 mg PO DAILY 01/10/24 07/28/24 Allergies Allergy/AdvReac Type Severity Reaction Status Date / Time sulfamethoxazole AdvReac Severe dizziness Verified 10/23/24 16:57 [From Sulfamethoxazole-Trimethoprim] trimethoprim AdvReac Severe dizziness Verified 10/23/24 16:57 [From Sulfamethoxazole-Trimethoprim] Review of Systems Review of Systems Narrative: General: Denies fever, chills, weight loss HEENT: Denies headache, eye drainage, eye irritation, head trauma, sore throat, voice change Cardiovascular: Positive Irregular heart rate Respiratory: Denies any shortness of breath, cough, wheeze, stridor GI/: Denies any abdominal pain, nausea, vomiting, diarrhea, bright red blood per rectum, melanotic stools, urinary frequency, urinary retention, dysuria, hematuria MSK: Denies any joint pain, muscle pains, swelling Skin: Denies any rashes, lesions, discoloration Neuro: Positive presyncope Psych: Denies SI/HI Patient History Medical History Closed fracture of left distal fibula BPH w urinary obs/LUTS Opacity of lung on imaging study Actinic keratosis Allergic rhinitis Acute kidney injury Wears glasses Chicken pox History of elevated PSA Hiatal hernia Paroxysmal atrial fibrillation Family history of prostate cancer Mixed hyperlipidemia Essential hypertension Systolic CHF, chronic Coronary artery disease Surgical History Anesthesia S/P heart valve repair (~2012) History of knee replacement (~2009) S/P placement of cardiac pacemaker (~11/2021) Status post repair of hydrocele Family History Father Prostate cancer Hypertension Stroke Cancer Mother Cancer Stroke Grandfather History of heart disease Grandfather History of heart disease Social History Smoking Status: Never smoker second hand exposure: No alcohol intake: former substance use type: does not use Smoking Status: Never smoker Exam Narrative Exam Narrative: General: Cooperative, comfortable, well-developed, not in acute distress HEENT: Normocephalic, atraumatic, PERRLA, normal sclera, eyelids normal, Neck: Active full range of motion, atraumatic Chest: Normal to inspection, negative crepitus, no overlying erythema ecchymosis Respiratory: Normal respiratory effort, not in acute respiratory distress, clear to auscultation bilaterally negative cough, wheeze, tachypnea, rhonchi, rales Cardiology: irregularly irregular, no murmurs rubs or gallops GI/: Normal to inspection, soft, nonrigid, no tenderness to palpation, exam deferred MSK: Full range of active range of motion of all 4 extremities, atraumatic Skin: No rashes lesions noted Neuro: NIH of 0 no focal deficits Alert awake oriented x3, moves all 4 extremities spontaneously, cranial nerves intact, able to answer all questions appropriately follows commands appropriately Psych: Cooperative, negative suicidal or homicidal ideations Initial Vital Signs Initial Vital Signs: Vital Signs Temperature 97.3 F L 10/23/24 16:57 Pulse Rate 140 H 10/23/24 16:57 Respiratory Rate 15 10/23/24 16:57 Blood Pressure 107/73 10/23/24 16:57 Pulse Oximetry 99 10/23/24 16:57 Oxygen Delivery Method Room Air 10/23/24 16:57 Course Orders Ordered: ED Orders 10/23/24 16:59 XR chest 1V Stat EKG-12 Lead Stat 10/23/24 17:05 Complete Blood Count AUTO DIFF Stat Comprehensive Metabolic Panel Stat Lipase Stat Magnesium Stat NT-proBNP (BNP-Adult 18+) Stat PTT Partial Thromboplastin [place] Stat Prothrombin Time INR Stat Troponin & CK Cardiac Panel Stat 10/23/24 19:05 EKG-12 Lead Stat 10/23/24 19:10 Trop I [Troponin I] Stat 10/23/24 21:58 CT head/brain wo con Stat Vital Signs Vital signs: Vital Signs - 8 hr 10/23/24 16:57 10/23/24 18:25 10/23/24 18:26 Temperature 97.3 F L Pulse Rate 140 H 83 Respiratory Rate 15 Blood Pressure 107/73 98/65 Pulse Oximetry 99 97 Oxygen Delivery Method Room Air 10/23/24 18:26 10/23/24 18:30 10/23/24 18:30 Temperature Pulse Rate 96 H 95 H Respiratory Rate 19 Blood Pressure 98/65 Pulse Oximetry 98 97 Oxygen Delivery Method 10/23/24 19:00 10/23/24 19:00 10/23/24 19:30 Temperature Pulse Rate 88 Respiratory Rate 17 Blood Pressure 105/62 105/66 Pulse Oximetry 97 Oxygen Delivery Method 10/23/24 19:30 10/23/24 20:00 10/23/24 20:00 Temperature Pulse Rate 96 H 95 H Respiratory Rate 19 20 Blood Pressure 100/69 Pulse Oximetry 96 97 Oxygen Delivery Method 10/23/24 20:30 10/23/24 20:30 10/23/24 21:00 Temperature Pulse Rate 83 89 Respiratory Rate 24 20 Blood Pressure 131/78 Pulse Oximetry 97 97 Oxygen Delivery Method Room Air 10/23/24 21:01 10/23/24 21:01 10/23/24 21:19 Temperature Pulse Rate 94 H Respiratory Rate 20 Blood Pressure 124/82 157/93 H Pulse Oximetry 97 Oxygen Delivery Method 10/23/24 21:19 10/23/24 21:30 10/23/24 21:30 Temperature Pulse Rate 86 79 Respiratory Rate 21 17 Blood Pressure 126/82 Pulse Oximetry 98 96 Oxygen Delivery Method Room Air 10/23/24 22:00 Temperature Pulse Rate 73 Respiratory Rate 20 Blood Pressure Pulse Oximetry 98 Oxygen Delivery Method MDM - Arrhythmia/Palpitations Differential Diagnosis Differential diagnosis: Likely palpitations, sinus tachycardia, artial fibrillation, artial flutter, ventricular premature beats, supraventricular tachycardia and other (Electrolyte abnormality, pneumonia, ACS) Lab Data 10/23/24 17:05 10/23/24 17:05 Labs: Lab Results 10/23/24 10/23/24 Range/Units 17:05 19:10 WBC 7.0 (4.5-11.0) X10^3/uL RBC 4.35 L (4.5-5.9) X10^6/uL Hgb 14.3 (13.5-17.5) g/dL Hct 41.8 (41-53) % MCV 96.1 (80-100) fL MCH 32.8 (26-34) PG MCHC 34.2 (30-36) % RDW 14.1 (11.6-14.8) % Plt Count 162 (150-400) X10^3/uL Neut % (Auto) 65.2 (50-75) % Lymph % (Auto) 24.0 L (25-40) % [place] % (Auto) 9.7 (3-14) % Eos % (Auto) 0.8 L (2-4) % Baso % (Auto) 0.3 (0-2) % Neut # (Auto) 4600 (6707-5112) /uL Lymph # (Auto) 1700 (0895-7793) /uL [place] # (Auto) 700 (0-900) /uL Eos # (Auto) 100 (0-450) /uL Baso # (Auto) 0 (0-100) /uL PT 15.1 H (9.4-12.5) SECONDS INR 1.3 (0.9-1.3) APTT 47 H (25.1-36.5) SECONDS Sodium 138 (137-145) mmol/L Potassium 4.4 (3.4-5.1) mmol/L Chloride 105 (98-107) mmol/L Carbon Dioxide 26 (22-32) mmol/L BUN 27 H (9-20) mg/dL Creatinine 1.43 H (0.66-1.25) mg/dL Estimated GFR 52 L (>60) mL/min BUN/Creatinine Ratio 18.9 (6-22) Glucose 105 (80-110) mg/dL Calcium 9.0 (8.4-10.2) mg/dL Magnesium 2.0 (1.6-2.3) mg/dL Total Bilirubin 0.9 (0.2-1.3) mg/dL AST 33 (17-59) IU/L ALT 31 (<50) IU/L Alkaline Phosphatase 88 (38-126) U/L Total Creatine Kinase 44 L (55-170) U/L Troponin I < 0.012 < 0.012 (0.01-0.034) ng/mL NT-Pro-B Natriuret Pep 4560 H (<125) pg/mL Total Protein 6.4 (6.3-8.2) g/dL Albumin 4.1 (3.5-5.0) g/dL Globulin 2.3 (1.7-4.1) g/dL Albumin/Globulin Ratio 1.8 (1.0-2.8) Lipase 53 (23-300) U/L Imaging Data Chest x-ray: Radiologist's Impresson: [address] [address] XRay Report Signed Patient: Kendall Finney MR#: [id number] : 1950 Acct:[id number] Age/Sex: 73 / M Date of Service: 10/23/24 Loc: ED Accession Number: [id number] Procedure: XR chest 1V Ordering Provider: Alessia Diaz D.O. PROCEDURE: XR CHEST 1V INDICATIONS: chest pain TECHNIQUE: One view of the chest was acquired. COMPARISON: [facility], CR, XR CHEST 1V, 05/28/2023, 20:21. FINDINGS: Surgical changes and devices: Left chest wall pacemaker leads are in the region of right atrium and right ventricle. Median sternotomy wires are seen. Lungs and pleura: Lungs are clear. No pleural effusions or pneumothorax. Mediastinum: Mediastinal contours appear normal. Heart size is normal. Bones and chest wall: No suspicious bony lesions. Overlying soft tissues appear unremarkable. IMPRESSION: No acute cardiopulmonary pathology. CT scan - chest: Radiologist's Impresson: [place] [address] CT Scan Report Signed Patient: Kendall Finney MR#: [id number] : 1950 Acct:[id number] Age/Sex: 73 / M Date of Service: 10/23/24 Loc: ED Accession Number: [id number] Procedure: CT head/brain wo con Ordering Provider: Nikko Avilez D.O. PROCEDURE: CT HEAD/BRAIN WO CON INDICATIONS: Presyncope TECHNIQUE: Noncontrast 4.5 mm thick angled axial sections acquired from the foramen magnum to the vertex, with coronal and sagittal reformats. For radiation dose reduction, the following was used: automated exposure control, adjustment of mA and/or kV according to patient size. COMPARISON: [facility], CT, CT HEAD WITHOUT CONTRAST, 10/29/2021, 0:43. FINDINGS: Image quality: Diagnostic CSF spaces: Basal cisterns are patent. Lateral ventricles are symmetric. Volume: Vascular calcifications. Periventricular white matter disease is commonly seen with chronic microangiopathy. Volume loss is present. These findings are mild Brain: No intracranial hemorrhage. [place]-white differentiation is grossly maintained. Craniofacial structures: No displaced fracture. Sinuses are clear. Orbits are intact. IMPRESSION: No acute intracranial pathology. If there is high concern for parenchymal pathology, consider further evaluation with MRI. ECG Data Interpretation: EKG interpreted ED physician atrial fibrillation at 96 beats per minute QTC [address] changes no STEMI MDM Narrative Medical decision making narrative: 73-year-old male with a history of paroxysmal AFib with AICD on apixaban, CAD CHF hypertension hyperlipidemia presenting for irregular heart rate and shortness of breath ongoing persistent for the past week. He denies any actual chest pain. He states that he did call his spinning frame cleaner Dr. Hogan and had to telehealth visits and was instructed to come into the ED for further evaluation treatment. He states that his AICD has not shocked him. He states that he has been compliant with all his medications but does note that recently he had adjustment to his medications unsure of which ones but states it was a proximally a few weeks ago. Patient also complaining of presyncopal symptoms intermittent in nature last 1 a proximally 1 week ago, however patient states that it lasted only for few seconds and not acting syncopized did not have any chest pain shortness breath prior before this incident. He states that he feels fine now but was instructed to go to the ED after talking to the [place] of his spinning frame cleaner's office. Patient had negative troponin x2, chest x-ray without any acute cardiopulmonary abnormalities, EKG showing rate controlled atrial fibrillation, patient with elevated BNP at 4560 however patient not requiring any supplemental oxygen, CT scan of the head without any acute findings, chest x-ray without any acute cardiopulmonary abnormalities 2050: Received call by patient is pacemaker team, they state no abnormalities functioning correctly 0: Patient was re-evaluated no new complaints at this time well-appearing nontoxic not requiring any supplemental oxygen patient rate controlled at this time intermittently AFib, patient states he feels well wants to go home follow up with his spinning frame cleaner for his scheduled appointment in the next 10 days, patient was given strict return precautions he verbalized understanding of this and agrees to being discharged home with outpatient follow up Discharge Plan Departure Patient Disposition: Home Clinical Impression: Palpitation Instructions: DI for Arrhythmias Activity Restrictions/Additional Instructions: Please follow up with your spinning frame cleaner and your primary care doctor Please read the discharge instructions sheet carefully and bring all papers to all doctor follow-up visits, as it may contain information that your doctor may want to see. Disease processes change and evolve, if your symptoms worsen or if you develop any new symptoms that are concerning to you please return for evaluation. Your evaluation today does not show any evidence of any life- threatening/serious illnesses requiring admission to the hospital or surgery. Please follow-up with your doctor for re-evaluation in approximately 1 day. Seek immediate medical attention for any worrisome symptoms. *If you do not have a primary care provider please contact the [facility] Resource line at [phone]. They will ask some questions about your medical history and help get you set up with a doctor in the community. Prescriptions: No Action amiodarone 200 mg tablet 200 mg PO DAILY cholecalciferol (vitamin D3) 50 mcg (2,000 unit) capsule 50 mcg PO DAILY ascorbic acid (vitamin C) 1 tab PO DAILY Eliquis 5 mg tablet 5 mg PO BID Patient Comments: TAKE 1 TABLET BY MOUTH 2 TIMES DAILY atorvastatin 40 mg tablet 40 mg PO DAILY Entresto 49-51 mg tablet 0.5 tab PO BID Patient Comments: TAKE 1 TABLET BY MOUTH 2 TIMES A DAY nitroglycerin 0.4 mg tablet, sublingual 0.4 mg sublingual Q5-15M PRN (Reason: Chest Pain) metoprolol succinate 50 mg tablet extended release 24 hr 50 mg PO DAILY Referrals: Deyvi Pickett MD [Primary Care Provider] - Stand Alone Forms: Patient Portal/API/Survey
--- NOTE | 2024-10-23 21:58 | DI.CT.S_ITS ---
PROCEDURE: CT HEAD/BRAIN WO CON INDICATIONS: Presyncope TECHNIQUE: Noncontrast 4.5 mm thick angled axial sections acquired from the foramen magnum to the vertex, with coronal and sagittal reformats. For radiation dose reduction, the following was used: automated exposure control, adjustment of mA and/or kV according to patient size. COMPARISON: [facility], CT, CT HEAD WITHOUT CONTRAST, 10/29/2021, 0:43. FINDINGS: Image quality: Diagnostic CSF spaces: Basal cisterns are patent. Lateral ventricles are symmetric. Volume: Vascular calcifications. Periventricular white matter disease is commonly seen with chronic microangiopathy. Volume loss is present. These findings are mild Brain: No intracranial hemorrhage. [place]-white differentiation is grossly maintained. Craniofacial structures: No displaced fracture. Sinuses are clear. Orbits are intact. IMPRESSION: No acute intracranial pathology. If there is high concern for parenchymal pathology, consider further evaluation with MRI. Dictated by: Tavares Billings M.D. on 10/23/2024 at 22:22 Approved by: Tavares Billings M.D. on 10/23/2024 at 22:23
== END 2024-10-23 23:12 | disposition home or self-care (01) ==
PROVIDERS: Emergency Medicine; Emergency Provider Student in an Organized Health Care Education/Training Program; PCP Internal Medicine
DX: R00.2 Palpitations (principal); R07.9 Chest pain, unspecified; R06.02 Shortness of breath; I10 Essential (primary) hypertension; E78.5 Hyperlipidemia, unspecified; Z79.01 Long term (current) use of anticoagulants
CPT/HCPCS: 36415; 70450; 71045; 80053; 82550; 83690; 83735; 83880; 84484; 85025; 85610; 85730; 93005; 99283; 99284

== ENCOUNTER → 2024-11-02 09:09 | Outpatient (CLI) | payer OTHER, SELFPAY ==
[2024-11-02 09:55] LABS: BUN Creatinine Ratio 17.2 (6-22); Blood Urea Nitrogen 20 mg/dL (9-20); Calcium 8.7 mg/dL (8.4-10.2); Carbon Dioxide 24 mmol/L (22-32); Chloride 107 mmol/L (98-107); Estimated Glomerular Filt Rate > 60 mL/min (>60); Glucose 150 mg/dL (80-110); HEMOLYSIS < 15 (0-50); Potassium 4.4 mmol/L (3.4-5.1); Sodium 139 mmol/L (137-145)
== END ==
PROVIDERS: PCP Internal Medicine; Referring Provider Internal Medicine Cardiovascular Disease; Visit Provider Internal Medicine Cardiovascular Disease
DX: I25.10 Atherosclerotic heart disease of native coronary artery without angina pectoris (principal)
CPT/HCPCS: 36415; 80048

== ENCOUNTER → 2025-03-11 07:17 | Outpatient (CLI) | payer OTHER, SELFPAY ==
[2025-03-11 08:27] LABS: Add Manual Diff / Slide Review NO; Hematocrit 42.7 % (41-53); Hemoglobin 14.6 g/dL (13.5-17.5); Lymphocytes Absolute Auto 2000 /uL (1100-4500); Mean Corpuscular HGB Conc 34.3 % (30-36); Mean Corpuscular Hemoglobin 32.5 PG (26-34); Mean Corpuscular Volume 94.9 fL (80-100); Platelet Count 177 X10^3/uL (150-400)
== END ==
PROVIDERS: PCP Internal Medicine; Referring Provider Internal Medicine; Visit Provider Internal Medicine Cardiovascular Disease
DX: I48.0 Paroxysmal atrial fibrillation (principal)
CPT/HCPCS: 36415; 85025

== ENCOUNTER → 2025-05-07 08:18 | Outpatient (CLI) | payer OTHER, SELFPAY ==
[2025-05-07 09:05] LABS: Hemoglobin A1C% w Est Avg Glu 5.9 % (4.0-6.0)
[2025-05-07 09:18] LABS: Blood Urea Nitrogen 23 mg/dL (9-20); Calcium 9.1 mg/dL (8.4-10.2); Carbon Dioxide 26 mmol/L (22-32); Chloride 106 mmol/L (98-107); Cholesterol 112 mg/dL (140-199); Estimated Glomerular Filt Rate > 60 mL/min (>60); Glucose 103 mg/dL (70-99); HDL Cholesterol 52 mg/dL (40-60); HEMOLYSIS < 15 (0-50); Potassium 4.3 mmol/L (3.4-5.1); Sodium 139 mmol/L (137-145); Triglycerides 84 mg/dL (35-150)
[2025-05-07 09:48] LABS: Prostate Specific Antigen 2.77 ng/mL (0.10-4.00)
== END ==
LOC: LAB 08:19
PROVIDERS: PCP Internal Medicine; Referring Provider Internal Medicine; Visit Provider Internal Medicine
DX: R73.01 Impaired fasting glucose (principal); E78.2 Mixed hyperlipidemia; N40.1 Benign prostatic hyperplasia with lower urinary tract symptoms; N13.8 Other obstructive and reflux uropathy
CPT/HCPCS: 36415; 80048; 80061; 83036; 84153; 84450

== ENCOUNTER → 2025-07-09 12:10 | Outpatient (CLI) | payer OTHER, SELFPAY ==
[2025-07-09 12:23] LABS: Add Manual Diff / Slide Review NO; Hematocrit 42.9 % (41-53); Hemoglobin 14.5 g/dL (13.5-17.5); Lymphocytes Absolute Auto 1200 /uL (1100-4500); Mean Corpuscular HGB Conc 33.7 % (30-36); Mean Corpuscular Hemoglobin 31.6 PG (26-34); Mean Corpuscular Volume 93.8 fL (80-100); Platelet Count 157 X10^3/uL (150-400)
== END ==
LOC: LAB 12:11
PROVIDERS: PCP Internal Medicine; Referring Provider Internal Medicine Cardiovascular Disease; Visit Provider Internal Medicine Cardiovascular Disease
DX: I48.91 Unspecified atrial fibrillation (principal)
CPT/HCPCS: 36415; 85025